=== PATIENT | male | born 1955 | race Caucasian/White ===

== ENCOUNTER 2017-04-24 19:36 | Inpatient (IN) | payer OTHER ==
--- NOTE | 2017-04-24 20:16 | ED ---
Fall HPI - General Chief Complaint: Fall Stated Complaint: Fall Lt elbow pain Time Seen by Provider: 04/24/17 20:04 Source: patient, RN notes reviewed Mode of arrival: ambulatory - History of Present Illness Initial Comments: 61-year-old male presents to the emergency Department chief complaint of left elbow injury. Patient states that he fell backwards on the stairs. Patient states he believes he only went onto his left elbow but it could've been a head injury. Patient states there hasn't been any fever chills with this. Patient denies any cough cold runny nose. Patient states that he is no loss of consciousness no neck pain. Patient denies any shoulder pain or hand pain and he states she's noticed swelling and bruising to the left elbow. Patient states his tetanus is up-to-date. Patient denies any other symptoms at this time. Patient denies any recent fever, chills, shortness of breath, chest pain, back pain, abdominal pain, nausea vomiting, numbness or tingling, dysuria or hematuria, constipation or diarrhea, headaches or visual changes, or any other current symptoms. - Related Data Home Medications Medication Instructions Recorded Confirmed Atenolol/Chlorthalidone 1 each PO DAILY 05/24/14 05/26/14 [Atenolol-Chlorthal 50-25 Tb] metFORMIN HCL 1,000 mg PO BID 05/24/14 05/26/14 Allergies Allergy/AdvReac Type Severity Reaction Status Date / Time No Known Allergies Allergy Verified 04/24/17 19:58 Review of Systems ROS Statement: Those systems with pertinent positive or pertinent negative responses have been documented in the HPI. ROS Other: All systems not noted in ROS Statement are negative. Past Medical History Past Medical History: Diabetes Mellitus, Hypertension History of Any Multi-Drug Resistant Organisms: None Reported Past Surgical History: Breast Surgery Additional Past Surgical History / Comment(s): breast biopsy, colonoscopy Past Anesthesia/Blood Transfusion Reactions: No Reported Reaction Past Psychological History: No Psychological Hx Reported Smoking Status: Former smoker Past Alcohol Use History: Daily Past Drug Use History: None Reported General Exam - General Exam Comments Initial Comments: General: The patient is awake and alert, in no distress, and does not appear acutely ill. Head: No trauma noted: No abrasion, no ecchymosis Neck: The neck is supple, there is no tenderness . Cardiovascular: There is a regular rate and rhythm. No murmur, rub or gallop is appreciated. Respiratory: Lungs are clear to auscultation, respirations are non-labored, breath sounds are equal. No wheezes, stridor, rales, or rhonchi. Musculoskeletal: Sensation intact with 2+ pulses throughout the left upper x- ray. Final range of motion of left shoulder and left wrist. Patient does appear to have some swelling to the left elbow with associated abrasion. Patient has full range motion of the left elbow when moved through range of motion. Neurological: CN II-XII intact, There are no obvious motor or sensory deficits. Coordination appears grossly intact. Speech is normal. Skin: Skin is warm and dry and no rashes or lesions are noted. Psychiatric: Normal mood and affect. Limitations: no limitations Course Vital Signs 04/24/17 19:54 Temperature 97.4 F L Pulse Rate 80 Respiratory 18 Rate Blood Pressure 137/81 O2 Sat by Pulse 97 Oximetry Procedures - Orthopedic Splinting/Casting Injury #1 Side: left Upper Extremity Injury Location: elbow Upper Extremity Immobilizer: posterior splint (long arm) Medical Decision Making - Medical Decision Making 61-year-old male presents emergency Department chief complaint of left elbow injury after a fall. patient does appear to have a fracture to the left ulna. At this time neck PA for Dr. Moira Rodriguez was contacted and they will admit the patient. We will keep the patient nothing by mouth. Disposition Clinical Impression: Left ulnar fracture, Fall, Abrasion of left arm, Cervical strain, Alcohol use Disposition: ADMITTED IP TO THIS HOSP Condition: Stable Referrals: Nate Gray MD [Primary Care Provider] - 1-2 days Time of Disposition: 21:28 Decision Date: 04/24/17 Decision Time: 21:28
--- NOTE | 2017-04-24 20:54 | XR ---
EXAMINATION TYPE: XR elbow complete LT DATE OF EXAM: 04/24/2017 CLINICAL HISTORY: Pain, fall TECHNIQUE: Frontal, lateral and oblique images of the left elbow are obtained. COMPARISON: None FINDINGS: There is a comminuted fracture of the olecranon and proximal ulna. Fracture lines extend in to the articular region. There is prominent soft tissue swelling over the olecranon. Small fracture f ragments are within the soft tissues. Mild prominence of the anterior and posterior fat pads are evident. Radius appears intact normal alig nmmargarita. IMPRESSION: Fracture of the ulna with intra-articular extension and overlying soft tissue swelling.
--- NOTE | 2017-04-24 21:07 | CT ---
EXAMINATION TYPE: CT brain dionicio romo con DATE OF EXAM: 04/24/2017 COMPARISON: NONE HISTORY: Fall backwards down 4 stairs. Possible head injury. No head or neck complaints. CT DLP: 2104.00 mGycm, Automated exposure control for dose reduction was used. CONTRAST: Patient injected with 0 mL of Omnipaque 300. CT of the brain is performed utilizing 3 mm thick sections through the posterior fossa and 3 mm thick sections through the remaining calvarium. Study is performed within 24 hours of arrival to the hospital. No abnormal hyperdensity is present to suggest an acute intracranial hemorrhage. No mass lesion is evident. No acute infarcts are evident. Ventricles and sulci are appropriate for the patient age. Paranasal sinuses and mastoid air cells within the [id number] are clear. IMPRESSIONS: 1. Normal CT brain. CT cervical spine. COMPARISON: None CT of the cervical spine is performed in the axial plane at 2 mm thick sections. Reconstructed image s in the coronal, and sagittal plane are reviewed on the computer. No acute fractures are evident. Vertebral body alignment is straightened. There is diffuse loss of disc height throughout the cervical spine. Vertebral body heights are preserved. No AP spinal canal stenosis present. C3-4: Severe right foraminal stenosis is present. Moderate left foraminal stenosis is present. Uncove rtebral joint hypertrophy and right facet hypertrophy are present. C4-5: There is moderate bilateral foraminal stenosis due to uncovertebral joint hypertrophy. C5-6: There is mild right and left foraminal stenosis due to uncovertebral joint hypertrophy. Right p aracentral endplate spur from the superior endplate of C6 is present with moderate anterior thecal sa c compression. C6-7: Bilateral uncovertebral joint hypertrophy is contributing to mild foraminal narrowing. IMPRESSIONS: 1. No acute osseous abnormality. 2. Straightening of the cervical spine which can be related to patient positioning or muscle spasm. 3. Degenerative disc changes. 4. Multilevel foraminal stenosis greater in the upper cervical spine.
[2017-04-24] MEDS ORDERED: SODIUM CHLORIDE 0.9% 1,000 ML IV STA (21:23)
[2017-04-24] MEDS ORDERED: NALOXONE 0.4 MG/ML 1 ML VIAL IV PRN (21:28)
[2017-04-24] MEDS ORDERED: ONDANSETRON 4 MG/2 ML VIAL IVP PRN (21:28)
[2017-04-24] MEDS ORDERED: HYDROcodone/APAP 5-325MG 1 EACH TAB PO PRN (21:28)
[2017-04-24] MEDS ORDERED: LORazepam 2 MG/ML SYRINGE IV PRN ×3 (21:30)
[2017-04-24] MEDS ORDERED: THIAMINE 100 MG/ML 2 ML VIAL IM STA (21:30)
[2017-04-24] MEDS: HYDROmorphone 1 MG/ML 1 ML SYRINGE IVP STA (21:54)
--- NOTE | 2017-04-24 22:06 | P.HPOR ---
History of Present Illness H&P Date: 04/24/17 Chief Complaint: Left olecranon fracture This is a 61-year-old male who is seen and evaluated, [facility] emergency room. Patient was walking into his house, and he states that his dog jumped up to greet him and he fell backwards down a few steps landing on pavement. Patient landed directly on his left elbow. Patient noted immediate severe pain, and reported to the hospital. Upon arrival to the hospital, imaging and lab tests were done. Images demonstrated a displaced and comminuted left olecranon fracture. I was contacted via the emergency room staff, we were able to discuss the case and review the images. I then was able to review the case and images of my tendon Dr. Barber. Decision was made that surgical intervention would be needed for this fracture. Patient will then be admitted under our care, with plan of an open reduction internal fixation procedure on 04/25/2017. Patient is seen in the emergency room by myself today, his is present at bedside. Patient admits to pain and swelling surrounding the left elbow. Patient denies any pain involving the left upper arm, shoulder, forearm, wrist or hand. Patient is a relatively healthy male, he is obese, he mentions being on medication for high blood pressure and prediabetes. He denies any previous orthopedic surgery to the left upper extremity. He denies any significant cardiac or pulmonary past medical history He denies any headaches, lightheadedness, chest pain, shortness of breath, abdominal discomfort, fever or chills. Review of Systems Constitutional: Reports as per HPI Past Medical History Past Medical History: Diabetes Mellitus, Hypertension History of Any Multi-Drug Resistant Organisms: None Reported Past Surgical History: Breast Surgery Additional Past Surgical History / Comment(s): breast biopsy, colonoscopy Past Anesthesia/Blood Transfusion Reactions: No Reported Reaction Past Psychological History: No Psychological Hx Reported Smoking Status: Former smoker Past Alcohol Use History: Daily Past Drug Use History: None Reported Medications and Allergies Home Medications Medication Instructions Recorded Confirmed Type Atenolol/Chlorthalidone 1 each PO DAILY 05/24/14 05/26/14 History [Atenolol-Chlorthal 50-25 Tb] metFORMIN HCL 1,000 mg PO BID 05/24/14 05/26/14 History Allergies Allergy/AdvReac Type Severity Reaction Status Date / Time No Known Allergies Allergy Verified 04/24/17 19:58 Physical Examination Left upper extremity: Notable abrasion to the posterior aspect of the elbow over the olecranon, and also a small abrasion noted over the lateral condyle Obvious hematoma and soft tissue swelling present over the posterior aspect of the elbow Obvious tenderness present with palpation surrounding the posterior elbow. No tenderness with palpation throughout the shoulder and humerus, forearm, hand and wrist Extension and flexion at the wrist are intact, he is able to minimally pronate and supinate the arm, this causes discomfort in the elbow His sensory exam to light touch throughout the extremities intact, his cap refills less than 2 seconds. Results - Diagnostic results Elbow x-ray: report reviewed, image reviewed Assessment and Plan Plan: Imaging: Multiple views of the left elbow were obtained. Images do demonstrate a comminuted and displaced left olecranon fracture Assessment: 1. Displaced/comminuted left olecranon fracture 2. Status post fall from steps Plan: 1. I was able to discuss this case, including both physical exam findings and images with my attending Dr. Barber. Surgical intervention will be needed for this fracture, this was discussed with the patient and his at bedside. The risk and benefits of the procedure were discussed, this including but not excluding infection, blood loss, neurovascular injury, pain and stiffness, loss of range of motion, and adequate healing of bone/wound, need for subsequent surgery. They are in good understanding of this and would like to proceed. 2. Obtain consent 3. Pain control, utilize IV and oral medication 4. Nothing by mouth after midnight 5. Utilize a posterior splint at this point 6. Plan for surgery the morning of 04/25/2017 7. Further recommendations to follow Time with Patient: Less than 30
[2017-04-24 22:13] LABS: Basophils # (A) 0.1 k/uL (0-0.2); Basophils % (A) 1 %; CH 33.1; CHCM 35.4; Eosinophils # (A) 0.2 k/uL (0-0.7); Eosinophils % (A) 1 %; HCT 49.3 % (39.0-53.0); HDW 2.58; Luc # (Auto) 0.28; Luc % (Auto) 2; Lymphocytes # (A) 2.7 k/uL (1.0-4.8); Lymphocytes % (A) 17 %; MCH 32.4 pg (25.0-35.0); MCHC 34.5 g/dL (31.0-37.0); MCV 93.8 fL (80.0-100.0); Mean Platelet Volume 6.9; Monocytes # (A) 0.8 k/uL (0-1.0); Monocytes % (A) 5 %; Neutrophils # (A) 12.1 k/uL (1.3-7.7); Neutrophils % (A) 75 %; RBC 5.26 m/uL (4.30-5.90); RDW 13.5 % (11.5-15.5); WBC 16.2 k/uL (3.8-10.6); WBC (Perox) 15.96
[2017-04-24 22:22] LABS: Partial Thromboplastin Time 23.3 sec (22.0-30.0)
[2017-04-24 22:31] LABS: ALT 29 U/L (21-72); AST 24 U/L (17-59); Alcohol 186 mg/dL; Alkaline Phosphatase 129 U/L (38-126); Anion Gap 16 mmol/L; Blood Urea Nitrogen 16 mg/dL (9-20); Calcium 9.2 mg/dL (8.4-10.2); Carbon Dioxide 23 mmol/L (22-30); Chloride 101 mmol/L (98-107); Glucose 105 mg/dL (74-99); Non-African American GFR(MDRD) >60 (>60 ml/min/1.73 sqM); Phosphorous 3.9 mg/dL (2.5-4.5); Potassium 3.5 mmol/L (3.5-5.1); Sodium 140 mmol/L (137-145); Total Bilirubin 0.6 mg/dL (0.2-1.3); Total Protein 7.4 g/dL (6.3-8.2)
[2017-04-24 22:47] VITALS: BMI 48.8
[2017-04-24] MEDS: SODIUM CHLORIDE 0.9% 1,000 ML IV SCH (22:54)
[2017-04-24] MEDS: HYDROmorphone 1 MG/ML 1 ML SYRINGE IV PRN (23:02)
[2017-04-25] MEDS: HYDROmorphone 1 MG/ML 1 ML SYRINGE IV PRN ×2 (04:10→10:18)
[2017-04-25 07:43] LABS: Glucose,Whole Blood 93 mg/dL (75-99)
[2017-04-25] MEDS: SODIUM CHLORIDE 0.9% 1,000 ML IV SCH ×2 (10:17→21:11)
[2017-04-25] MEDS: INSULIN LISPRO (humaLOG) 300 UNIT/3 ML VIAL SQ SCH ×4 (10:27→21:10)
[2017-04-25] MEDS ORDERED: fentaNYL (PF) 50 MCG/ML 2 ML AMP ONE ×2 (11:02)
[2017-04-25] MEDS ORDERED: KETOROLAC 30 MG/ML 1 ML VIAL ONE ×2 (11:02)
[2017-04-25] MEDS ORDERED: SUCCINYLCHOLINE CHLORIDE 100 MG/5 ML SYR IV ONE ×2 (11:02)
[2017-04-25] MEDS ORDERED: PROPOFOL 10 MG/ML 20 ML VIAL IV ONE ×2 (11:02)
[2017-04-25] MEDS ORDERED: IV FLUID CONTINUATION 800 ML IV ONE (11:02)
[2017-04-25] MEDS ORDERED: MIDAZOLAM 2 MG/2 ML VIAL ONE (11:02)
[2017-04-25] MEDS ORDERED: SODIUM CHLORIDE 0.9% 50 ML with ceFAZolin 3,000 MG IV ONE ×2 (11:10)
[2017-04-25] MEDS ORDERED: BUPIVACAINE (PF) 0.5% 30 ML VIAL SQ ONE ×2 (11:32)
[2017-04-25] MEDS ORDERED: ceFAZolin 1,000 MG in SODIUM CHLORIDE 0.9% 1,000 ML IRRIGATION ONE (11:59)
[2017-04-25 12:00] LABS: Hemoglobin A1C 5.3 % (4.2-6.1)
[2017-04-25] MEDS ORDERED: BACITRACIN 500 UNIT/GM OINT 28.4 GM TUBE TOPICAL ONE (12:18)
--- NOTE | 2017-04-25 12:18 | XR ---
EXAMINATION TYPE: XR elbow limited LT DATE OF EXAM: 04/25/2017 COMPARISON: NONE HISTORY: Pain TECHNIQUE: 1 operative views submitted FINDINGS: Surgical changes noted which appear in near-anatomic alignment. IMPRESSION: Surgical alignment near-anatomic
[2017-04-25] MEDS ORDERED: LACTATED RINGERS 1,000 ML IV ONE (12:23)
[2017-04-25] MEDS: THIAMINE 100 MG TAB PO SCH ×2 (12:26→16:52)
[2017-04-25] MEDS ORDERED: HYDROmorphone 1 MG/ML 1 ML SYRINGE IVP PRN ×2 (12:40)
[2017-04-25] MEDS ORDERED: HYDROcodone/APAP 7.5-325MG 1 EACH TAB PO PRN (12:41)
[2017-04-25] MEDS: HYDROmorphone 1 MG/ML 1 ML SYRINGE IVP ONE ×3 (12:43→12:59)
[2017-04-25] MEDS ORDERED: ACETAMINOPHEN TAB 325 MG TAB PO PRN (12:43)
--- NOTE | 2017-04-25 12:44 | P.OP ---
Date of Procedure: 04/25/17 Preoperative Diagnosis: Comminuted/displaced left elbow olecranon fracture Postoperative Diagnosis: Same Procedure(s) Performed: Open reduction and internal fixation left elbow olecranon fracture Implants: 2-0.62 K wires, 16-gauge cerclage wire Anesthesia: JAME, local Surgeon: Stanley Barber Bulldozer Operator #1: Wagner Diallo Estimated Blood Loss (ml): 20 Pathology: none sent Condition: stable Disposition: PACU Indications for Procedure: 61-year-old patient seen with a displaced/comminuted left elbow olecranon fracture. I recommended open reduction internal fixation. The procedure, risks , complications and recovery were discussed with patient and his . They were agreeable and consent was obtained. Operative Findings: See description of procedure Description of Procedure: The patient was taken to the operative suite. The patient underwent a general anesthetic by the department anesthesia. The patient was given preoperative IV antibiotics. A well-padded tourniquet was placed proximal left upper extremity. The left upper extremity was prepped and draped in the normal sterile orthopedic fashion. The tourniquet was insufflated to 250. I made longitudinal incision over the olecranon beginning at the tip of the olecranon extending distally approximately 6 cm. We immediately encountered hematoma was evacuated. We bluntly dissected down to the fracture which was comminuted and displaced. Periosteal elevation was used more distally to expose the proximal aspect of the ulna. We then evacuated the hematoma. There was a comminuted fragment that was debrided out. At this point we irrigated the wound out with saline solution. We introduced 1062 K wire from the proximal olecranon into the intramedullary canal of the ulna while holding the fracture reduced. We brought the C-arm into the operative field noting adequate alignment of that pulmonary first K wire. I now introduced a second K wire somewhat perpendicular to the first. We again checked on fluoroscopy noted adequate positioning of the K wire. We now drilled a hole approximately 3 cm distal to the fracture passed our 16-gauge cerclage wire through that. We then clipped the ends of our K wires and bent them and then reduced the fracture using a standard tension band wiring technique. We good reduction of this comminuted fracture with adequate alignment noted on AP and lateral intraoperative imaging. The residual wire was cut all ends were bent and buried in soft tissue. The elbow seems range of motion on good stability of the fracture. The C-arm was brought in again noting adequate alignment of this comminuted fracture with the positioner introduced fixation. Spot films were obtained intraoperatively to document that. The wound was irrigated with antibiotic irrigant. The soft tissues were repaired in layers with 2-0 Vicryl. The skin is proximal skin adwoa. The subcu soft tissues were infiltrated local analgesic. Sterile dressings were applied. The tourniquet was released with immediate capillary refill the entire extremity noted. We placed him into a posterior sugar tong splint with the elbow in 90 of flexion in neutral rotation of the forearm. The patient was transferred to a bed then recovery stable condition. Mani HANCOCK assisted with the procedure.
[2017-04-25] MEDS: HYDROmorphone 1 MG/ML 1 ML SYRINGE IVP STA (12:54)
[2017-04-25 13:04] LABS: Glucose,Whole Blood 111 mg/dL (75-99)
[2017-04-25] MEDS ORDERED: fentaNYL (PF) 50 MCG/ML 2 ML AMP IVP ONE (13:11)
[2017-04-25] MEDS ORDERED: diphenhydrAMINE 50 MG/ML 1 ML VIAL IVP ONE ×2 (13:23)
[2017-04-25] MEDS: HYDROcodone/APAP 7.5-325MG 1 EACH TAB PO PRN ×2 (16:39→22:36)
[2017-04-25] MEDS: hydrOXYzine PAMOATE 25 MG CAP PO PRN ×2 (16:40→22:36)
[2017-04-25] MEDS: traMADol 50 MG TAB PO SCH ×3 (16:51→22:41)
[2017-04-25 17:49] LABS: Glucose,Whole Blood 119 mg/dL (75-99)
[2017-04-25] MEDS: metFORMIN 500 MG TAB PO SCH (17:54)
[2017-04-25] MEDS: ceFAZolin 3 GM in SODIUM CHLORIDE 0.9% 100 ML IVPB SCH (19:11)
[2017-04-25] MEDS: CHLORTHALIDONE 25 MG TAB PO SCH (20:20)
[2017-04-25] MEDS: ATENOLOL 50 MG TAB PO SCH (20:20)
[2017-04-25] MEDS ORDERED: ATORVASTATIN 20 MG TAB PO SCH (21:00)
[2017-04-25 21:08] LABS: Glucose,Whole Blood 105 mg/dL (75-99)
[2017-04-26] MEDS: ceFAZolin 3 GM in SODIUM CHLORIDE 0.9% 100 ML IVPB SCH (02:12)
[2017-04-26 02:15] VITALS: RESP 16
[2017-04-26] MEDS: hydrOXYzine PAMOATE 25 MG CAP PO PRN (06:21)
[2017-04-26] MEDS: HYDROcodone/APAP 7.5-325MG 1 EACH TAB PO PRN ×2 (06:21→12:19)
[2017-04-26 07:04] LABS: Glucose,Whole Blood 112 mg/dL (75-99)
[2017-04-26 07:15] VITALS: BP 110/66; PULSE 80; TEMP 100.6
--- NOTE | 2017-04-26 08:12 | P.DS ---
Providers Date of admission: 04/24/17 21:33 Expected date of discharge: 04/26/17 Attending physician: Stanley Barber Primary care physician: Nate Gray Hospital Course: Date of admission: 04/24/2017 Date of discharge: 04/26/2017 Admission diagnosis: Displaced left elbow olecranon fracture Discharge diagnosis: Status post ORIF left elbow olecranon fracture Attending physician: Dr. Barber Surgical procedures: Open reduction internal fixation left elbow olecranon fracture Brief history: Patient is a 61-year-old male who is seen and evaluated in the emergency room the night of 04/24/2017 after sustaining a fall off his porch on the cement at his home. Imaging studies demonstrated a displaced left olecranon fracture involving the left elbow. Our orthopedic team was consulted on this patient, I was able to evaluate him in the emergency room that night. It was determined that surgical fixation would be needed for this fracture. Patient was admitted to the hospital the same night under our orthopedic care, and surgery scheduled for 04/25/2017. Hospital course: Details of patient's surgery can be found in operative report. Patient tolerated the procedure well and was subsequently transported to orthopedic floor. Patient's orthopeidc and medical care was provided daily. Patient was noted to have a relatively uneventful postoperative course. Patient reported satisfactory pain control with oral pain medications by postoperative day 0. Patient moved steadily through the program and had no difficulty meeting the goals by postoperative day 1. Given patient's otherwise satisfactory course and having met physical therapy goals, plan is to discharge patient home on postoperative day 1. Discharge condition/disposition: Patient will be discharged home in stable condition. Discharge medications: Instructions are given on resumption of patient's normal daily medications per primary care recommendation, in addition patient will be prescribed Western 10mg/325mg. Discharge instructions: 1. Do not remove splint, keep covered while showering. 2. Ice and elevate the extremity 3. Pain meds as needed 4. Follow up in office at 2 weeks postop with Mani Diallo PA-C 5. Follow up with your primary care doctor 7-10 days after discharge. 6. Contact [facility] with any questions, . Procedures: Open reduction internal fixation left displaced olecranon fracture Patient Condition at Discharge: Good Plan - Discharge Summary New Discharge Prescriptions: New Hydrocodone/Acetaminophen [Western 10-325] 1 each PO Q6H PRN #60 tab PRN Reason: Pain No Action Atenolol/Chlorthalidone [Atenolol-Chlorthal 50-25 Tb] 1 tab PO BID metFORMIN HCL ER [Glucophage Xr] 500 mg PO W/BRKFST Atorvastatin Calcium [Lipitor] 20 mg PO HS Discharge Medication List Atenolol/Chlorthalidone [Atenolol-Chlorthal 50-25 Tb] 1 tab PO BID 05/24/14 [ History] Atorvastatin Calcium [Lipitor] 20 mg PO HS 04/24/17 [History] metFORMIN HCL ER [Glucophage Xr] 500 mg PO W/BRKFST 04/24/17 [History] Hydrocodone/Acetaminophen [Western 10-325] 1 each PO Q6H PRN #60 tab 04/26/17 [Rx] Follow up Appointment(s)/Referral(s): aNte Gray MD [Primary Care Provider] - 1-2 days Wagner Diallo PAC [PHYSICIAN RESPIRATORY CARE SPECIALIST] - 2 Weeks Activity/Diet/Wound Care/Special Instructions: Discharge instructions: 1. Do not remove splint, keep clean and dry. Keep covered while showering 2. Ice the extremity opted for some dramatic relief 3. Pain medication as needed 4. Follow-up at [facility] in 2 weeks Discharge Disposition: HOME SELF-CARE
[2017-04-26] MEDS: INSULIN LISPRO (humaLOG) 300 UNIT/3 ML VIAL SQ SCH ×2 (08:34→12:27)
[2017-04-26] MEDS: metFORMIN 500 MG TAB PO SCH (08:36)
--- NOTE | 2017-04-26 10:06 | P.PN ---
Subjective Principal diagnosis: s/p ORIF left elbow olecranon fracture Patient seen resting in hospital bed, he appears comfortable. Slight increase in pain. No chest pain or shortness of breath. Objective - Vital Signs Vital signs: Vital Signs Temp 100.6 F H 04/26/17 07:12 Pulse 80 04/26/17 07:12 Resp 16 04/26/17 07:16 BP 110/66 04/26/17 07:12 Pulse Ox 92 L 04/26/17 07:16 Intake & Output 04/25/17 04/26/17 04/26/17 18:59 06:59 18:59 Intake Total 1990 320 Output Total 20 Balance 1970 320 Intake: IV 1501 320 Sodium Chloride 0.9% 1, 320 000 ml @ 80 mls/hr IV . [id number] STUART Rx#:[id number] Intake, IV Titration 240 Amount Sodium Chloride 0.9% 1, 240 000 ml @ 80 mls/hr IV . [id number] STUART Rx#:[id number] Oral 250 Output: Estimated Blood Loss 20 Other: Voiding Method Toilet # Voids 1 1 - Exam Left upper extremity: Splint is in good condition, he is utilizing the arm sling. He is able wiggle all the fingers including the thumb. His sensation to light touch is intact both proximal distal to the splint. His cap refill is less than 2 seconds. - Labs CBC & Chem 7: 04/24/17 21:53 04/24/17 21:53 Labs: Abnormal Lab Results - Last 24 Hours (Table) 04/25/17 04/25/17 04/25/17 Range/Units 13:01 17:46 21:04 POC Glucose (mg/dL) 111 H 119 H 105 H (75-99) mg/dL 04/26/17 Range/Units 07:02 POC Glucose (mg/dL) 112 H (75-99) mg/dL Assessment and Plan Plan: Assessment: 1. Postoperative day #1 status post ORIF left elbow olecranon fracture Plan: 1. Pain control, we'll discharge home on oral medication 2. Cast instructions were discussed the patient at bedside today 3. Patient advised to follow-up in the office in 2 weeks for postoperative evaluation, he will be discharged home today Time with Patient: Less than 30
[2017-04-26] MEDS: traMADol 50 MG TAB PO SCH (10:34)
[2017-04-26] MEDS: CHLORTHALIDONE 25 MG TAB PO SCH (10:34)
[2017-04-26] MEDS: ATENOLOL 50 MG TAB PO SCH (10:35)
[2017-04-26 11:25] LABS: Glucose,Whole Blood 100 mg/dL (75-99)
[2017-04-26] MEDS: SODIUM CHLORIDE 0.9% 1,000 ML IV SCH (12:26)
[2017-04-26] MEDS: THIAMINE 100 MG TAB PO SCH (12:27)
--- NOTE | 2017-04-27 07:58 | FL ---
FLUOROSCOPY 6 seconds of fluoroscopy time were utilized during internal fixation of the left elbow. 2 images docu ment the procedure.
== END 2017-04-26 12:25 | disposition home or self-care (01) | DRG 511 ==
LOC: EC 19:36 → 3SUR 21:33
PROVIDERS: ADMIT Orthopaedic Surgery; ATTEND Orthopaedic Surgery
PROC: 0PSL04Z Reposition Left Ulna with Internal Fixation Device, Open Approach (ICD-10-PCS; principal; 2017-04-25 10:30)
DX: S52.022A Displaced fracture of olecranon process without intraarticular extension of left ulna, initial encounter for closed fracture (principal); Z68.42 Body mass index [BMI] 45.0-49.9, adult; E66.9 Obesity, unspecified; I10 Essential (primary) hypertension; S16.1XXA Strain of muscle, fascia and tendon at neck level, initial encounter; E11.9 Type 2 diabetes mellitus without complications; Z79.899 Other long term (current) drug therapy; Z79.84 Long term (current) use of oral hypoglycemic drugs; Z87.891 Personal history of nicotine dependence; W10.8XXA Fall (on) (from) other stairs and steps, initial encounter; Y92.008 Other place in unspecified non-institutional (private) residence as the place of occurrence of the external cause
CPT/HCPCS: 29105; 70450; 72125; 80053; 80320; 83036; 83735; 84100; 85025; 85610; 85730; 86850; 86900; 86901; 96361; 96374; 96376; 99284

== ENCOUNTER → 2017-05-26 | Outpatient (CLI) | payer OTHER ==
--- NOTE | 2017-05-26 18:08 | PN ---
DATE OF SERVICE: 05/26/2017 This is a 61-year-old male patient who is seeing me in followup regarding his obstructive sleep apnea. This is his annual exam. He has severe TANG with an AHI of 109.7 and he was being treated with BiPAP at a pressure of 19/15 cm of water along with oxygen at 2 liters. He is doing extremely well; still very compliant with the treatment, waking up alert and awake during the day. Sleep quality has improved significantly and the patient is utilizing his BiPAP every night without any interruption. His Tombstone score is down to zero. He has lost about 17 pounds since his last evaluation. He claims that his hemoglobin has also dropped, as the patient has secondary erythrocytosis that was a concern in association with obstructive sleep apnea. No complaints for now. He is using a full-face mask. No difficulties in tolerating the BiPAP treatment for now. No other significant events over the past 12 months. His current vitals are BP 146/ 83, pulse 82, respiration 16, temperature 98.4, saturation 95% on room air. Neck size 19-1/2 inches. Tombstone score is zero. Height is 5 feet 11 inches. Weight is 322. BMI is 45. GENERAL APPEARANCE: Calm, comfortable. HEENT: Short neck. Crowding of posterior pharynx. No goiter or neck masses. LUNGS: Diminished breath sounds. Otherwise clear. Heart sounds are regular rate and rhythm. Normal S1, S2. No S3. No S4. No murmurs. ABDOMEN: Soft, non-tender. No organomegaly. EXTREMITIES: No edema. No cyanosis or clubbing. IMPRESSION: 1. Severe symptomatic obstructive sleep apnea with an AHI of 109.7. Continues to successfully be treated with BiPAP at a pressure of 19/15 with oxygen at 3 L. 2. Morbid obesity. 3. Secondary erythrocytosis. 4. Hypersomnia, improved. Tombstone score is down to zero. 5. Successful weight loss on the order of 17 pounds. PLAN: 1. Renew BiPAP supplies; mask, filters and rest of the accessories. 2. Encourage further weight loss. 3. No need for any adjustments, as the patient's treatment is successful. 4. See me back in a year's time in followup. CHRIS
== END | disposition home or self-care (01) ==
LOC: SLEEP 13:10
PROVIDERS: ATTEND Internal Medicine Critical Care Medicine
DX: G47.33 Obstructive sleep apnea (adult) (pediatric) (principal); E66.01 Morbid (severe) obesity due to excess calories; D75.1 Secondary polycythemia

== ENCOUNTER → 2017-07-10 | Outpatient (CLI) | payer OTHER ==
--- NOTE | 2017-07-10 09:26 | MR ---
EXAMINATION TYPE: MR shoulder LT wo con DATE OF EXAM: 07/10/2017 COMPARISON: NONE HISTORY: Left shoulder pain TECHNIQUE: Multiplanar, multisequence imaging of the left shoulder is performed without contrast. FINDINGS: Rotator Cuff: There is thickening and abnormal signal of the distal margin of the supraspinatus tendo n extending the insertion last Approximately 1.8 cm. Irregularity along the bursal surface noted compatible with partial bursal surf liz tear. No retraction. Infraspinatus tendon appears to be intact. Subscapularis tendon intact. Acromioclavicular Joint: There is marked hypertrophic change and narrowing of the AC joint which resu lts in impingement of the rotator cuff. Glenohumeral Joint: Joint space appears to be preserved there is a trace amount of fluid within the j oint space. Motion artifact limits assessment of the inferior glenohumeral ligament cannot exclude a strain. Labrum: The labrum appears grossly intact given limitation of non-arthrogram study. Biceps Tendon: The long head of biceps is in normal location within bicipital groove. Bone marrow signal: Cystic changes involving the humeral head likely related to chronic impingement. IMPRESSION: Exam limited by motion artifact. 1. Impingement secondary to arthropathy of the AC joint with diffuse tendinopathy of the supraspinatu s tendon ( Approximately 1.8 cm and extending to the insertion. Bursal irregularity near the insertion is compat ible with partial bursal surface tear with no retraction. Suspect a small through thickness tear at t he humeral insertion. 2. Motion artifact limits the exam. Particularly limitation with respect to the in inferior glenohume ral ligament which is somewhat ill-defined. Correlate clinically to exclude strain. 3. There is atrophic changes in the visualized musculature.
== END | disposition home or self-care (01) ==
LOC: RADMRIMAIN 08:30
PROVIDERS: ATTEND Family Medicine
DX: M67.814 Other specified disorders of tendon, left shoulder (principal); M25.812 Other specified joint disorders, left shoulder; M62.50 Muscle wasting and atrophy, not elsewhere classified, unspecified site

== ENCOUNTER → 2017-08-13 | Outpatient (CLI) | payer OTHER ==
[2017-08-13 09:45] LABS: EKG EKG PERFORMED
[2017-08-13 10:09] LABS: Basophils # (A) 0.1 k/uL (0-0.2); Basophils % (A) 1 %; CH 31.8; CHCM 33.5; Eosinophils # (A) 0.2 k/uL (0-0.7); Eosinophils % (A) 2 %; HCT 47.5 % (39.0-53.0); HDW 2.52; HGB 15.7 gm/dL (13.0-17.5); Luc # (Auto) 0.23; Luc % (Auto) 2; Lymphocytes % (A) 17 %; MCH 31.4 pg (25.0-35.0); MCV 95.2 fL (80.0-100.0); Mean Platelet Volume 7.2; Monocytes # (A) 0.8 k/uL (0-1.0); Monocytes % (A) 7 %; Neutrophils # (A) 8.1 k/uL (1.3-7.7); Neutrophils % (A) 71 %; RBC 4.99 m/uL (4.30-5.90); RDW 12.8 % (11.5-15.5); WBC 11.4 k/uL (3.8-10.6); WBC (Perox) 11.78
[2017-08-13 10:28] LABS: Anion Gap 11 mmol/L; Carbon Dioxide 26 mmol/L (22-30); Chloride 103 mmol/L (98-107); Potassium 3.5 mmol/L (3.5-5.1); Sodium 140 mmol/L (137-145)
== END | disposition home or self-care (01) ==
LOC: LABPAT 09:12
PROVIDERS: ATTEND Orthopaedic Surgery
DX: Z01.810 Encounter for preprocedural cardiovascular examination (principal); R94.31 Abnormal electrocardiogram [ECG] [EKG]; M75.42 Impingement syndrome of left shoulder
CPT/HCPCS: 36415; 80051; 85025; 93005

== ENCOUNTER 2017-08-19 05:52 | Day surgery (SDC) | payer OTHER ==
[2017-08-14 09:26] VITALS: BMI 44.0
--- NOTE | 2017-08-18 13:52 | HP ---
HISTORY AND PHYSICAL DATE OF SERVICE: 08/19/2017 Xu Ornelas is a 61-year-old patient seen with progressive left shoulder pain. After treatment options were discussed with him, he elected to proceed with left shoulder arthroscopy. Consent was obtained. PAST MEDICAL HISTORY: Hypertension, hyperlipidemia. PAST SURGICAL HISTORY: Open reduction, internal fixation of left elbow fracture. DAILY MEDICATIONS: 1. Atenolol. 2. Atorvastatin. 3. Metoprolol. 4. Metformin. ALLERGIES: None reported. SOCIAL HISTORY: Patient denies tobacco use. PHYSICAL EVALUATION OF THE LEFT SHOULDER: Flexion is 40 degrees. Abduction is 20 degrees. External rotation is 20 degrees with pain and weakness. Tenderness along the anterolateral acromion rotator cuff insertion. Impingement positive at 70 degrees. Drop-arm sign is positive. Distal neurovascular exam is intact. RADIOGRAPHS OF THE LEFT SHOULDER: Revealed a type 2 anterior acromion, acromioclavicular joint osteoarthritis and cystic changes of the tuberosity. A left shoulder MRI revealed a rotator cuff tear as well as impingement. IMPRESSION: Left shoulder impingement with rotator cuff tear. PLAN: Left shoulder arthroscopy with subacromial decompression, possible arthroscopic rotator cuff repair. Possible Kyra procedure and debridement. SOURCE OF CONSULT: 1955 surgery is 08/19/2017 thanks. MMODL / IJN: [id number] /
[~2017-08-19 05:52] MED LIST: ceFAZolin 3 GM in SODIUM CHLORIDE 0.9% 100 ML IVPB ONE
[2017-08-19] MEDS ORDERED: LACTATED RINGERS 1,000 ML IV SCH (06:05)
[2017-08-19] MEDS ORDERED: ONDANSETRON 4 MG/2 ML VIAL IVP ONE (06:05)
[2017-08-19] MEDS ORDERED: LIDOCAINE 1% 20 ML VIAL (10MG/ML) FOR IV START INTRADERMA PRN (06:05)
[2017-08-19] MEDS ORDERED: SCOPOLAMINE 1.5MG/72HR PATCH TRANSDERM ONE (06:05)
[2017-08-19] MEDS ORDERED: MIDAZOLAM 2 MG/2 ML VIAL IV PRN (06:05)
[2017-08-19] MEDS ORDERED: HYDROmorphone 0.5 MG/0.5 ML SYRINGE IVP PRN (06:05)
[2017-08-19] MEDS ORDERED: DEXAMETHASONE SOD PHOSPHATE 10 MG/ML 1 ML VIAL IV ONE (06:05)
[2017-08-19 06:42] LABS: Glucose,Whole Blood 108 mg/dL (75-99)
[2017-08-19] MEDS ORDERED: fentaNYL (PF) 50 MCG/ML 2 ML AMP ONE (07:27)
[2017-08-19] MEDS ORDERED: GLYCOPYRROLATE 0.2 MG/ML 2 ML VIAL ONE (07:27)
[2017-08-19] MEDS ORDERED: MIDAZOLAM 2 MG/2 ML VIAL ONE (07:27)
[2017-08-19] MEDS ORDERED: PROPOFOL 10 MG/ML 20 ML VIAL IV ONE (07:27)
[2017-08-19] MEDS ORDERED: LIDOCAINE 2%-EPI 1:100,000 20 ML VIAL ONE (07:27)
[2017-08-19] MEDS ORDERED: SUCCINYLCHOLINE CHLORIDE 100 MG/5 ML SYR IV ONE (07:27)
[2017-08-19] MEDS ORDERED: KETOROLAC 30 MG/ML 1 ML VIAL ONE (07:27)
[2017-08-19] MEDS ORDERED: ROCURONIUM BROMIDE 10 MG/ML 10 ML VIAL IV ONE (07:27)
[2017-08-19] MEDS ORDERED: ONDANSETRON 4 MG/2 ML VIAL ONE (07:27)
[2017-08-19] MEDS ORDERED: ROPIVACAINE 5 MG/ML 30 ML VIAL ONE (07:27)
[2017-08-19] MEDS ORDERED: NEOSTIGMINE 1 MG/ML 10 ML VIAL ONE (07:27)
[2017-08-19] MEDS ORDERED: LACTATED RINGERS 1,000 ML IV ONE (08:15)
[2017-08-19 09:15] VITALS: TEMP 97.2
--- NOTE | 2017-08-19 09:16 | P.OP ---
Date of Procedure: 08/19/17 Preoperative Diagnosis: Left shoulder impingement Postoperative Diagnosis: 1. Left shoulder rotator cuff tear 2. Left shoulder impingement 3. Left shoulder acromioclavicular joint osteoarthritis 4. Left shoulder partial biceps tendon tear 5. Left shoulder superficial labral tear Procedure(s) Performed: 1. Left shoulder arthroscopic rotator cuff repair 2. Left shoulder arthroscopic subacromial decompression 3. Left shoulder arthroscopic Kyra procedure 4. Left shoulder arthroscopic biceps tenotomy 5. Left shoulder arthroscopic debridement labral tear Implants: 1-5.5 mm peek anchor Anesthesia: GETA, regional (Interscalene block) Surgeon: Stanley Barber Scrap Piler #1: Wagner Diallo Estimated Blood Loss (ml): 10 Pathology: none sent Condition: stable Disposition: PACU Indications for Procedure: 61-year-old patient seen with left shoulder pain. After treatment options were discussed, he elected to proceed with arthroscopy. Operative Findings: See description of procedure Description of Procedure: Patient underwent a shoulder block by department of anesthesia. The patient was then taken to the operative suite. The patient underwent a general anesthetic by the department of anesthesia. The patient was placed into a lateral position and secured. There was appropriate padding of the bony prominence. Left shoulder was then prepped and draped in normal sterile orthopedic fashion. We placed the extremity in 10 pounds of longitudinal traction. A posterior incision was now made for a posterior working portal site. The trocar and cannula were inserted into the glenohumeral joint. Arthroscopy was initiated. Spinal needle was now inserted anteriorly, to ascertain the anterior working portal site. An incision was now made in that area, a trocar was inserted followed by a probe. There was superficial tearing of the superior labrum present. There was a partial tear long head biceps tendon with hyperemia. There were grade 1 chondromalacia changes of the glenohumeral joint with no osteochondral tears present. No loose bodies were evident. I performed an arthroscopic biceps tenotomy. I debrided the superficial labral tear down to stable tissue. The residual labrum was probed and found to be stable. Instruments now removed from glenohumeral joint. Utilizing the posterior working portal site, the trocar and cannula were inserted into the subacromial space. Arthroscopy initiated. I made an incision 2 fingerbreadths lateral to the acromion. I introduced my trocar followed by my ArthroCare ablator. I now began ablating thick subacromial bursal tissue, which exposed the undersurface of the anterior acromion. This was diminished subacromial space. There was a very prominent anterior acromion. A motorized bur was introduced and a subacromial decompression was performed. I also excised some osteophytes off the inferior aspect of the distal clavicle. The AC joint was visualized and noted to be fairly arthritic. Our motorized bur was introduced in the anterior portal site and a Kyra procedure was performed without difficulty, decompressing the AC joint nicely. I turned my attention to the rotator cuff. There appeared to be a partial tear distal supraspinatus tendon. Once I debrided that down and did note a through and through perforation. I now debrided the surrounding tissue getting down to stable rotator cuff tendon tissue. The tear measured 1.5 cm freely mobile over the footprint. I abraded the footprint with a motorized bur. I passed 2 everted mattress sutures through good bites of rotator cuff tendon. I then secured the tendon tissue to our footprint with one peek anchor. This compressed the tendon along the footprint very nicely. The residual suture limbs were clipped. The repair was probed and found to be stable. I injected 1 mL Allogen intra-articular. Instruments now removed from the portal sites. All portal sites were approximated with nylon suture. Sterile dressings were applied followed by a shoulder immobilizer. Wagner HANCOCK assisted with the procedure. The patient was awakened, transferred to a bed, and taken to recovery in stable condition.
[2017-08-19 10:44] VITALS: BP 106/61; PULSE 58; RESP 17
== END 2017-08-19 11:50 | disposition home or self-care (01) ==
LOC: OR 05:52
PROVIDERS: ATTEND Orthopaedic Surgery
DX: M75.102 Unspecified rotator cuff tear or rupture of left shoulder, not specified as traumatic (principal); M75.42 Impingement syndrome of left shoulder; S46.112A Strain of muscle, fascia and tendon of long head of biceps, left arm, initial encounter; S43.492A Other sprain of left shoulder joint, initial encounter; M94.212 Chondromalacia, left shoulder; M25.712 Osteophyte, left shoulder; M19.012 Primary osteoarthritis, left shoulder; I10 Essential (primary) hypertension; G47.33 Obstructive sleep apnea (adult) (pediatric); E78.5 Hyperlipidemia, unspecified; Z79.899 Other long term (current) drug therapy; Z79.84 Long term (current) use of oral hypoglycemic drugs; X58.XXXA Exposure to other specified factors, initial encounter
CPT/HCPCS: 29827; 29826; 29824; 64415; C1713; C1765; J2250; J1100; J2710; J0690; J2405; J3010; J1885; J2795; J0330; J2704

== ENCOUNTER → 2018-06-22 | Outpatient (CLI) | payer OTHER ==
--- NOTE | 2018-06-22 16:10 | PN ---
PROGRESS NOTE This is a 62-year-old male patient with severe symptomatic obstructive sleep apnea with an AHI of 109.7 who is still on a BiPAP at a pressure of 19/5 along with oxygen at 3 L/minute nasal cannula. The patient is coming in for an annual check. He is using a Quattro Air full-face mask. He is looking extremely well. His weight has been stable. He has remained very compliant with his BiPAP treatments and treatment has been extremely successful, as the patient continues to benefit and his Saluda score is down to 1. I checked his BiPAP compliancy data. He is set at a pressure of 19/15. He is averaging around 9.5 hours of BiPAP use every night. Leak factor is 12 L/minute. Tidal volumes is at 480 and his AHI while on treatment is down to 0.2. He is doing well. No nocturnal arousals. No nocturia. No nocturnal shortness of breath or chest pain. Weight has been stable. No altered mentation during the day. No change in mental status or increased hypersomnia or sleepiness during the day. REVIEW OF SYSTEMS: Twelve-point review of systems was done. Positive findings are all mentioned above in the history of present illness. PHYSICAL EXAMINATION: HIS VITALS: BP is 127/82, pulse 96, respirations 16, temperature 99.1, saturation 95% on room air. His height is 5 feet 11 inches, weight 323, BMI is 45. GENERAL APPEARANCE: Obese, calm, comfortable. Head is atraumatic, normocephalic. Neck short supple. There is crowding in the posterior pharynx. There is no goiter or neck masses. LUNGS: Clear to auscultation. HEART: Sounds are regular rate and rhythm. Normal S1, S2. No S3. No murmurs. ABDOMEN: Soft, nontender. No organomegaly. No direct tenderness, rebound tenderness or guarding. EXTREMITIES: No edema. No cyanosis or clubbing. NEUROLOGIC: Alert and oriented x3. No focal neurological deficits. PSYCHIATRIC: Appropriate mood and affect. SKIN: Negative for any wounds or ulceration. IMPRESSION: 1. Severe obstructive sleep apnea with an AHI of 109.7. Continues to be successfully treated with a BiPAP pressure of 19/15 along with oxygen at 3 L. 2. Morbid obesity with a stable weight. 3. Hypersomnia, recovered. Saluda score is down to 1. 4. 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 PLAN: 1. Continue BiPAP therapy at the same level of pressure. 2. Offered him new CPAP mask and supplies. 3. Weight loss. 4. See me back in a year's time in followup, earlier if needed. MMODL / IJN: [id number] /
== END | disposition home or self-care (01) ==
LOC: SLEEP 14:07
PROVIDERS: ATTEND Internal Medicine Critical Care Medicine
DX: G47.33 Obstructive sleep apnea (adult) (pediatric) (principal); E66.01 Morbid (severe) obesity due to excess calories; D75.1 Secondary polycythemia; Z99.89 Dependence on other enabling machines and devices

== ENCOUNTER → 2019-01-28 | Outpatient (CLI) | payer OTHER ==
[2019-01-28 12:03] LABS: Potassium 3.1 mmol/L (3.5-5.1)
[2019-01-28 12:10] LABS: INR 0.9 (<1.2); Partial Thromboplastin Time 23.6 sec (22.0-30.0)
[2019-01-28 12:17] LABS: Basophils # (A) 0.1 k/uL (0-0.2); Basophils % (A) 1 %; Eosinophils # (A) 0.2 k/uL (0-0.7); Eosinophils % (A) 1 %; HCT 49.1 % (39.0-53.0); HGB 16.4 gm/dL (13.0-17.5); Lymphocytes % (A) 16 %; MCH 32.5 pg (25.0-35.0); MCHC 33.3 g/dL (31.0-37.0); MCV 97.3 fL (80.0-100.0); Mean Platelet Volume 6.8; Monocytes # (A) 0.9 k/uL (0-1.0); Monocytes % (A) 7 %; Neutrophils # (A) 9.1 k/uL (1.3-7.7); Neutrophils % (A) 74 %; Platelet Count 322 k/uL (150-450); RBC 5.04 m/uL (4.30-5.90); RDW 13.6 % (11.5-15.5); WBC 12.2 k/uL (3.8-10.6)
== END ==
LOC: LABWHC1 10:41
PROVIDERS: ATTEND Orthopaedic Surgery
DX: Z01.818 Encounter for other preprocedural examination (principal); M17.11 Unilateral primary osteoarthritis, right knee
CPT/HCPCS: 36415; 80051; 85025; 85610; 85730; 87070; 93005

== ENCOUNTER → 2019-02-24 | Outpatient (CLI) | payer OTHER ==
[2019-02-24 11:21] LABS: INR 0.9 (<1.2); Partial Thromboplastin Time 22.7 sec (22.0-30.0)
[2019-02-24 11:28] LABS: Potassium 3.4 mmol/L (3.5-5.1)
[2019-02-24 11:49] LABS: Basophils # (A) 0.1 k/uL (0-0.2); Basophils % (A) 1 %; Eosinophils # (A) 0.2 k/uL (0-0.7); Eosinophils % (A) 2 %; HCT 48.2 % (39.0-53.0); HGB 16.6 gm/dL (13.0-17.5); Lymphocytes # (A) 2.4 k/uL (1.0-4.8); Lymphocytes % (A) 21 %; MCH 33.1 pg (25.0-35.0); MCHC 34.5 g/dL (31.0-37.0); MCV 95.9 fL (80.0-100.0); Mean Platelet Volume 7.1; Monocytes # (A) 0.8 k/uL (0-1.0); Monocytes % (A) 7 %; Neutrophils # (A) 7.6 k/uL (1.3-7.7); Neutrophils % (A) 67 %; Platelet Count 325 k/uL (150-450); RBC 5.02 m/uL (4.30-5.90); RDW 15.4 % (11.5-15.5); WBC 11.4 k/uL (3.8-10.6)
== END ==
LOC: LABPAT 10:48
PROVIDERS: ATTEND Orthopaedic Surgery
DX: Z01.812 Encounter for preprocedural laboratory examination (principal); M17.11 Unilateral primary osteoarthritis, right knee
CPT/HCPCS: 36415; 80051; 85025; 85610; 85730

== ENCOUNTER 2019-03-07 08:09 | Inpatient (IN) | payer OTHER ==
--- NOTE | 2019-03-06 16:58 | HP ---
HISTORY AND PHYSICAL REASON FOR ADMISSION: Surgery scheduled for 03/07/2019 HISTORY OF PRESENT ILLNESS: Xu Ornelas is a 63-year-old patient seen with symptomatic right knee osteoarthritis. Treatment options were discussed. He elected to proceed with right total knee arthroplasty. Consent was obtained. Medical clearance was provided by Dr. Gray. PAST MEDICAL HISTORY: Hypertension and hyperlipidemia. PAST SURGICAL HISTORY: Left shoulder arthroscopy, open reduction, internal fixation, left elbow fracture. MEDICATIONS: Atenolol, atorvastatin, Lyrica. ALLERGIES: None. SOCIAL HISTORY: Denies tobacco use. PHYSICAL EXAMINATION: Evaluation of the right knee is range of motion is -3 to 115 degrees. There is tenderness along the medial joint line. Crepitus medial patellofemoral compartments. There is pain with patellofemoral compression. Ligaments stable. Hip rotation without pain. Distal neurovascular exam intact. RADIOGRAPHS: Radiographs of the right knee reveal severe medial moderate patellofemoral compartment osteoarthritis. IMPRESSION: 1. Right knee osteoarthritis. 2. Hypertension. 3. Hyperlipidemia. PLAN: Right total knee arthroplasty. Surgery scheduled for 03/07/2019. MMODL / IJN: [id number] /
[~2019-03-07 08:09] MED LIST changes: +ACETAMINOPHEN TAB 500 MG TAB PO ONE; +MELOXICAM 7.5 MG TAB PO ONE; +TRANEXAMIC ACID 1,000 MG in SODIUM CHLORIDE 0.9% 100 ML IVPB ONE
[2019-03-07] MEDS ORDERED: LIDOCAINE 1% 20 ML VIAL (10MG/ML) FOR IV START INTRADERMA ONE (08:53)
[2019-03-07] MEDS ORDERED: LACTATED RINGERS 1,000 ML IV ONE (08:54)
[2019-03-07] MEDS ORDERED: DEXAMETHASONE SOD PHOS (MDV) 100 MG/10 ML VIAL IV ONE (08:55)
[2019-03-07] MEDS ORDERED: ONDANSETRON 4 MG/2 ML VIAL IVP ONE (08:55)
[2019-03-07 09:01] LABS: Glucose,Whole Blood 104 mg/dL (75-99)
[2019-03-07] MEDS ORDERED: fentaNYL (PF) 50 MCG/ML 2 ML AMP IV ONE (09:12)
[2019-03-07] MEDS ORDERED: MIDAZOLAM (PF) 2 MG/2 ML VIAL IV ONE (09:12)
[2019-03-07] MEDS ORDERED: ROPIVACAINE 1,100 MG, SODIUM CHLORIDE 0.9% 500 ML 330 ML MISCELLANE PRN ×2 (09:34)
--- NOTE | 2019-03-07 09:36 | P.ONQ ---
Anesthesiology Proc Note - PNB - Peripheral Nerve Block Performed Right Adductor Canal Infusion Time Out Performed: Yes Procedure Start Time: 09:12 Indication: Acute Post-Operative Pain Specifically requested for management of pain by DrJose: Stanley Barber Sedation Type: Sedate with meaningful contact maintained Preparation: Sterile Prep Position: Supine Catheter Depth at Skin (cm): 10 Catheter: Indwelling Needle Types: Other (see comment) (pajunk) Needle Size: 100mm (4") Needle Gauge: 18 Technique: Ultrasound Injectate: 0.5% Ropivacaine (see comment for volume) (20) Blood Aspirated: No Pain Paresthesia on Injection Noted: No Resistance on Injection: Normal Events: Uneventful and Well Tolerated
[2019-03-07] MEDS ORDERED: ROPIVACAINE 246.25 MG, EPINEPHrine 0.5 MG, KETOROLAC 30 MG, cloNIDine HCL/PF 80 MCG, WA... MISCELLANE ONE ×5 (09:42)
[2019-03-07] MEDS ORDERED: GLYCOPYRROLATE 0.2 MG/ML 2 ML VIAL ONE (10:03)
[2019-03-07] MEDS ORDERED: KETAMINE 10 MG/ML 20 ML VIAL ONE (10:03)
[2019-03-07] MEDS ORDERED: TRANEXAMIC ACID 1,000 MG/10 ML VIAL ONE (10:03)
[2019-03-07] MEDS ORDERED: fentaNYL (PF) 50 MCG/ML 2 ML AMP ONE (10:03)
[2019-03-07] MEDS ORDERED: MIDAZOLAM 2 MG/2 ML VIAL ONE (10:03)
[2019-03-07] MEDS ORDERED: SODIUM CHLORIDE 0.9% 100 ML BAG ONE (10:03)
[2019-03-07] MEDS ORDERED: ceFAZolin 3,000 MG in SODIUM CHLORIDE 0.9% IRRIGATIO 3,000 ML IRRIGATION ONE (10:35)
[2019-03-07] MEDS ORDERED: HYDROmorphone 1 MG/ML 1 ML SYRINGE IVP PRN (12:30)
[2019-03-07] MEDS ORDERED: HYDROcodone/APAP 5-325MG 1 EACH TAB PO PRN (12:30)
[2019-03-07] MEDS ORDERED: NALOXONE 0.4 MG/ML 1 ML VIAL IV PRN (12:30)
[2019-03-07] MEDS ORDERED: ONDANSETRON 4 MG/2 ML VIAL IVP PRN (12:30)
[2019-03-07] MEDS ORDERED: traMADol 50 MG TAB PO PRN (12:30)
[2019-03-07] MEDS ORDERED: HYDROmorphone 0.5 MG/0.5 ML SYRINGE IVP PRN ×2 (12:30)
--- NOTE | 2019-03-07 12:30 | P.OP ---
Date of Procedure: 03/07/19 Preoperative Diagnosis: Right knee osteoarthritis Postoperative Diagnosis: Right knee osteoarthritis Procedure(s) Performed: Right total knee arthroplasty Implants: 1. Depuy attune size 7 cruciate retaining cemented femur 2. Depuy attune size 8 fixed bearing cemented tibial baseplate 3. Depuy attune size 7 fixed-bearing cruciate retaining 12 mm polyethylene tibial insert 4. Depuy attune 41 mm all polyethylene cemented patella Anesthesia: regional (Adductor canal catheter), local, spinal Surgeon: Stanley Barber [employer] Contact Worker #1: Wagner Diallo Estimated Blood Loss (ml): 50 Pathology: other (Bone) Condition: stable Disposition: PACU Indications for Procedure: 63-year-old patient seen was symptomatic right knee osteoarthritis. After treatment options were discussed, he elected to proceed with total knee arthroplasty. Operative Findings: See description of procedure Description of Procedure: Patient was taken to the operative suite after having an adductor canal catheter placed by the department of anesthesia for postoperative pain management. Patient underwent a spinal anesthetic by the department of anesthesia. Patient was given preoperative IV intake antibiotics and TXA. A well-padded tourniquet was placed about the right lower extremity. The lower extremity was then prepped and draped in the normal sterile orthopedic fashion. The extremity was elevated, a tourniquet was insufflated to 300. A standard anterior incision was made sharply through skin. Dissection was taken down through the subcutaneous soft tissues down to the extensor mechanism. A medial arthrotomy was performed, patella was everted and knee was flexed. There was advanced osteoarthritis noted. I introduced my distal intramedullary femoral drill. I then introduced the distal femoral cutting jig. Mani HANCOCK secured the cutting jig with 2 pins. I held retractors in position while Mani HANCOCK performed the distal femoral resection through the guide area we now removed her distal femoral cutting guide. We now placed our 4-in-1 femoral cutting block and positioned and it was secured with 2 pins by Mani HANCOCK while I held the block in position. The distal femoral finishing was now completed. A proximal tibial cutting guide was positioned. I held the guide in the appropriate position with both hands well Mani HANCOCK inserted stabilizing pins into the guide. Proximal tibial cut was made. We now placed a trial femoral component into position, along with an appropriate size tibial tray and insert. We now took the knee through range of motion and had full extension good flexion and good overall soft tissue balance noted. The patella was everted and stabilized with 2 towel clips held by Mani HANCOCK while I performed a flush with patellar quad tendon utilizing a fresh sawblade. We templated the patella, appropriate drill holes were made. An appropriate trial patella was positioned, knee was taken through full range of motion with the patella tracking very nicely. The trial patella was removed. Drill holes were made through the femoral component. All trial components were removed after marking off the appropriate rotation of the tibia. Retractors were now positioned along the proximal tibia. An appropriate keel punch was made with the appropriate size tibial guide by myself on Mani HANCOCK assisted by holding retractors. At this point appropriate size implants were chosen and opened. The joint was irrigated copiously with pulse lavage mechanical irrigation. The posterior capsule was infiltrated with local analgesic. The wound was irrigated with pulse lavage mechanical irrigation. We mixed antibiotic methylmethacrylate. We placed the knee into flexion. We placed multiple retractors assisted by Mani HANCOCK to expose the proximal tibia. Once the methyl methacrylate was ready, the tibial component was cemented into place removing any excess methylmethacrylate form by both myself and Mani HANCOCK. The femoral component was cemented into place removing the removing any excess methylmethacrylate performed by both myself and Mani HANCOCK. We then inserted the appropriate size polyethylene tibial insert. We made sure that it was locked into position. We took the knee into full extension, and then back in a flexion making sure we had removed any excess methylmethacrylate. The patellar component was then cemented down and secured with clamp. Excess methylmethacrylate removed. We kept the knee in full extension, patellar clamp in position until methylmethacrylate had hardened. On ce it had hardened the patellar clamp was removed. The knee was taken through full range of motion. The patella tracked nicely. There was good soft tissue balancing. The tourniquet was now released. Additional hemostasis was achieved via electrocautery. A second gram of TXA was given. The wound again was irrigated with pulse lavage mechanical irrigation. The superficial soft tissues were infiltrated local analgesic. The extensor mechanism was repaired with Vicryl. We checked the repair with range of motion and it was stable. The subcutaneous soft tissues were repaired with Vicryl in layers. The skin was approximated with pernio/Dermabond. Sterile dressings were applied followed by loose web roll and Yousuf bandage. The patient was transferred to a bed, and taken to recovery in stable and satisfactory condition. Mani HANCOCK assisted with this complex procedure.
[2019-03-07 12:57] LABS: Glucose,Whole Blood 104 mg/dL (75-99)
--- NOTE | 2019-03-07 12:59 | XR ---
EXAMINATION TYPE: XR knee limited RT DATE OF EXAM: 03/07/2019 COMPARISON: NONE TECHNIQUE: Two views submitted HISTORY: Post op FINDINGS: There is a prosthetic knee in near anatomic alignment. There is soft tissue edema and emphysema. IMPRESSION: 1. Postoperative change. Appears in near-anatomic alignment
[2019-03-07 17:09] LABS: Glucose,Whole Blood 132 mg/dL (75-99)
[2019-03-07] MEDS: LACTATED RINGERS 1,000 ML IV SCH ×2 (18:26→22:40)
[2019-03-07] MEDS: HYDROcodone/APAP 5-325MG 1 EACH TAB PO PRN (18:26)
[2019-03-07] MEDS: ceFAZolin 3 GM in SODIUM CHLORIDE 0.9% 100 ML IVPB SCH (18:28)
[2019-03-07 19:54] VITALS: BMI 46.0
[2019-03-07] MEDS: PREGABALIN 100 MG CAP PO SCH (20:26)
[2019-03-07] MEDS: POTASSIUM CHLORIDE ER 20 MEQ TAB.ER PO SCH (20:27)
[2019-03-07] MEDS: ATENOLOL 50 MG TAB PO SCH (20:27)
[2019-03-07] MEDS: CHLORTHALIDONE 25 MG TAB PO SCH (20:27)
[2019-03-07] MEDS: DICLOFENAC 0.1% OPHTH SOLN 2.5 ML BTL RIGHT EYE SCH (20:35)
[2019-03-07] MEDS: prednisoLONE ACETATE 1% OPHTH DROPS 5 ML BTL RIGHT EYE SCH (20:36)
[2019-03-07] MEDS ORDERED: ATORVASTATIN 20 MG TAB PO SCH (21:00)
[2019-03-07] MEDS ORDERED: SENNOSIDES-DOCUSATE SODIUM 1 EACH TAB PO SCH (21:00)
[2019-03-07] MEDS ORDERED: MELATONIN 5 MG TABLET PO SCH (21:00)
[2019-03-07] MEDS ORDERED: LATANOPROST 0.005% OPHTH DROPS 2.5 ML BTL LEFT EYE SCH (21:00)
[2019-03-07 21:55] LABS: Glucose,Whole Blood 135 mg/dL (75-99)
[2019-03-07] MEDS ORDERED: OFLOXACIN 0.3% OPHTH DROPS 5 ML BOTTLE RIGHT EYE SCH (22:00)
--- NOTE | 2019-03-07 23:59 | CONS ---
CONSULTATION DATE OF CONSULTATION: March 07, 2019. REASON FOR CONSULTATION: Medical management requested by Dr. Barber. CONSULTATION: This is a 63-year-old patient of Dr. Gray who has undergone a right total knee arthroplasty. Chronic stable medical conditions include diabetes, hypertension, hyperlipidemia, obstructive sleep apnea. Does use a CPAP machine. Postprocedure pain is controlled. No nausea, vomiting. Patient did tolerate some diet. No cardiac history. REVIEW OF SYSTEMS: CONSTITUTIONAL: None. HEENT: None. RESPIRATORY: None. GASTROINTESTINAL: None. MUSCULOSKELETAL: Arthritic pain in joints. DERMATOLOGICAL, HEMATOLOGIC, LYMPHATIC: none. PSYCHIATRY none. NEUROLOGIC none. PAST MEDICAL HISTORY: Diabetes, hyperlipidemia, hypertension, osteoarthritis, obstructive sleep apnea, diabetes, diet-controlled, uses a BiPAP with oxygen at bedtime, had surgery for glaucoma, cataract in the right eye. PAST SURGICAL HISTORY: Breast surgery, left elbow surgery, left shoulder surgery, eye surgery for glaucoma. Right eye cataract removed. SOCIAL HISTORY: Smoked 2 packs a day for 20 years, stopped in 1994. Lives with his son. Alcohol occasionally. FAMILY HISTORY: Reviewed. Noncontributory to presentation. HOME MEDICATIONS: 1. Prednisone Forte 1% 1 drop to right eye q.i.d. 2. Lyrica 100 mg p.o. b.i.d. 3. Potassium 20 mEq p.o. b.i.d. 4. Ofloxacin 0.3 with 1 drop to right eye t.i.d. 5. Melatonin 10 mg q.h.s. 6. Latanoprost 0.005% 1 drop to left eye q.h.s. 7. Sodium 0.1% 1 drop to right eye q.i.d. 8. Vitamin D3 2000 units p.o. daily. 9. Lipitor 20 mg q.h.s. 10.Atenolol hydrochlorothiazide 50/25 1 tablet p.o. b.i.d. ALLERGIES: None. PHYSICAL EXAMINATION: VITAL SIGNS: Temperature 98.2, pulse 77, respiratory rate 18, blood pressure 156/91, pulse ox 95% on room air. GENERAL APPEARANCE: Well built, BMI 44.8, sitting up awake. EYES: Pupils equal. Conjunctivae normal. HEENT: External appearance of nose and ears normal. Oral cavity normal. NECK: JVD not raised. Mass not palpable. RESPIRATORY: Effort normal. LUNGS: Fair entry. CARDIOVASCULAR: First and second sounds normal. No edema. ABDOMEN: Soft, nontender. Liver and spleen not palpable. LYMPHATICS: No lymph nodes palpable in the neck and axilla. PSYCHIATRIC: Alert and oriented times three. Mood and affect normal. NEUROLOGICAL: Pupils equal. Cranial nerves grossly intact. Power and sensation grossly intact. MUSCULOSKELETAL: Dressing of the right knee. INVESTIGATIONS: Accu-Cheks are noted. ASSESSMENT: 1. Right total knee arthroplasty. 2. Diabetes mellitus type 2 on oral hypoglycemics. 3. Hypertension. 4. Hyperlipidemia. 5. Obstructive sleep apnea uses a BiPAP machine. 6. Morbid obesity BMI 44.8. PLAN: Home medications resumed. Accu-Cheks will be followed. The patient is on Lovenox for DVT prophylaxis. Care was discussed with the patient., Thank you Dr. Barber. Copy to Dr. Gray. MMSAMANTHA / WYATTN: [id number] /
[2019-03-08] MEDS: ceFAZolin 3 GM in SODIUM CHLORIDE 0.9% 100 ML IVPB SCH (00:13)
[2019-03-08] MEDS: HYDROcodone/APAP 5-325MG 1 EACH TAB PO PRN ×3 (00:13→10:55)
[2019-03-08] MEDS: DICLOFENAC 0.1% OPHTH SOLN 2.5 ML BTL RIGHT EYE SCH ×2 (06:36→13:26)
[2019-03-08] MEDS: prednisoLONE ACETATE 1% OPHTH DROPS 5 ML BTL RIGHT EYE SCH ×2 (06:36→13:26)
[2019-03-08 07:22] LABS: Glucose,Whole Blood 105 mg/dL (75-99)
[2019-03-08 07:57] LABS: Basophils % (A) 0 %; Eosinophils % (A) 0 %; HGB 14.1 gm/dL (13.0-17.5); Lymphocytes # (A) 1.3 k/uL (1.0-4.8); Lymphocytes % (A) 7 %; MCHC 33.6 g/dL (31.0-37.0); MCV 98.2 fL (80.0-100.0); Monocytes # (A) 1.2 k/uL (0-1.0); Monocytes % (A) 7 %; Neutrophils # (A) 14.2 k/uL (1.3-7.7); Neutrophils % (A) 84 %; Platelet Count 276 k/uL (150-450); RBC 4.28 m/uL (4.30-5.90); RDW 14.5 % (11.5-15.5); WBC 16.9 k/uL (3.8-10.6)
[2019-03-08 08:17] VITALS: BP 118/72; PULSE 67; RESP 16; TEMP 98.8
[2019-03-08] MEDS ORDERED: MELOXICAM 7.5 MG TAB PO SCH (09:00)
[2019-03-08] MEDS ORDERED: CHOLECALCIFEROL 1,000 UNIT TAB PO SCH (09:00)
[2019-03-08] MEDS ORDERED: ENOXAPARIN 30 MG/0.3 ML SYRINGE SQ SCH (09:00)
--- NOTE | 2019-03-08 10:34 | P.PN ---
Subjective Progress Note Date: 03/08/19 Principal diagnosis: Status post right total knee arthroplasty Patient evaluated at bedside today, his resting in a chair. Exam really well with therapy. His pain is controlled. Denies any chest pain, shortness of breath, fever or chills. Objective - Vital Signs Vital signs: Vital Signs Temp 98.8 F 03/08/19 07:00 Pulse 67 03/08/19 07:00 Resp 16 03/08/19 07:00 BP 118/72 03/08/19 07:00 Pulse Ox 96 03/08/19 07:00 Intake & Output 03/07/19 03/08/19 03/08/19 18:59 06:59 18:59 Intake Total 1451 1400 240 Output Total 50 500 Balance 1401 900 240 Intake: IV 1001 Intake, IV Titration 50 1000 Amount Lactated Ringers 1,000 ml 50 1000 @ 100 mls/hr IV .Q10H [facility]UART Rx#:[id number] Oral 400 400 240 Output: Urine 500 Estimated Blood Loss 50 Other: # Voids 1 - Exam Right lower extremity: Incision is clean, dry, and intact. The exofin fusion tape is in good condition. There is minimal soft tissue swelling and ecchymosis surrounding the medial and lateral aspects of the incision. Calf is soft, no tenderness with palpation. Plantar flexion, dorsiflexion, EHL, FHL are intact. Sensory exam to light touch throughout the extremity is intact, dorsal pedis pulses 2+. - Labs CBC & Chem 7: 03/08/19 06:59 03/07/19 08:50 Labs: Abnormal Lab Results - Last 24 Hours (Table) 03/07/19 03/07/19 03/07/19 Range/Units 12:56 16:57 21:21 WBC (3.8-10.6) k/uL RBC (4.30-5.90) m/uL Neutrophils # (1.3-7.7) k/uL Monocytes # (0-1.0) k/uL POC Glucose (mg/dL) 104 H 132 H 135 H (75-99) mg/dL 03/08/19 03/08/19 Range/Units 06:59 07:10 WBC 16.9 H (3.8-10.6) k/uL RBC 4.28 L (4.30-5.90) m/uL Neutrophils # 14.2 H (1.3-7.7) k/uL Monocytes # 1.2 H (0-1.0) k/uL POC Glucose (mg/dL) 105 H (75-99) mg/dL Assessment and Plan Plan: Assessment: Postoperative day 1 status post right total knee arthroplasty Plan: Pain control, will place patient on [place] 7.5 mg/325 mg of discharge GI and DVT prophylaxis, Eliquis 2.5mg bid for 2 weeks Wound care instructions discussed Icing and elevating techniques discussed Home therapy and nursing at discharge Medical recommendations Plan for discharge home today Time with Patient: Less than 30
--- NOTE | 2019-03-08 10:37 | P.DS ---
Providers Date of admission: 03/07/19 08:09 Expected date of discharge: 03/08/19 Attending physician: Stanley Barber Primary care physician: Nate Gray Hospital Course: Date of admission: 03/07/2019 Date of discharge: 03/08/2019 Admission diagnosis: Status post right total knee arthroplasty Discharge diagnosis: Same Attending physician: Dr. Barber Surgical procedures: Right total knee arthroplasty Brief history: Patient is a 63-year-old male with a history of with progressive primary right knee osteoarthritis. At this point patient has failed conservative treatment measures and has opted to proceed with a elective right total knee arthroplasty. Hospital course: Details of patient's surgery can be found in operative report. Patient tolerated the procedure well and was subsequently transported to orthopedic floor. Patient's orthopeidc and medical care was provided daily. Patient had daily laboratory tests performed for evaluation of overall blood counts. Patient had daily physical therapy to include strengthening range of motion as well as education with walker ambulation. Patient had daily CPM usage as part of their physical therapy program. Patient was treated with Lovenox for their postoperative DVT prophylaxis during their inpatient stay. Patient was noted to have a relatively uneventful postoperative course. Patient reported satisfactory pain control with oral pain medications by postoperative day 0. Patient showed satisfactory progress with physical therapy. Patient moved steadily through the program and had no difficulty meeting the goals by postoperative day 1. Given patient's otherwise satisfactory course and having met physical therapy goals, plan is to discharge patient home on postoperative day 1. Discharge condition/disposition: Patient will be discharged home in stable c ondition. Discharge medications: Instructions are given on resumption of patient's normal daily medications per primary care recommendation, in addition patient will be prescribed Fransisco 7.5 mg/325 mg, Colace 100 mg, Eliquis 2.5mg. Discharge instructions: 1. Wound care and infection precautions, keep incision dry and covered while showering, no lotions, creams, moisturizers. No soaking, tubs, pools, hottubs. Do not scrub over the incision. 2. Weight-bear as tolerated with walker / cane until follow-up. 3. Ice and elevate when necessary. Do not exceed 20 minutes per hour with ice pack. 4. Utilize compression sleeve until seen at first follow up appointment. 5. Visiting nursing care. 6. Home physical therapy including home CPM. 7. Pain meds and anticoagulants per prescription. 8. Pain medication has potential to cause constipation. Increase oral fluid and fiber intake. Contact primary care provider if you have not had a bowel movement within 48 hours after discharge 9. No anti-inflammatory medication until discussed at first post operative visit, this including Motrin, Aleve, Mobic, Diclofenac. 10. Follow up in office at 2 weeks postop with Mani Diallo PA-C 11. Follow up with your primary care doctor 7-10 days after discharge. 12. Contact [facility] with any questions, . Procedures: Right total knee arthroplasty Patient Condition at Discharge: Good Plan - Discharge Summary Discharge Rx Participant: No New Discharge Prescriptions: New Docusate [Colace] 100 mg PO DAILY #30 capsule Apixaban [Eliquis] 2.5 mg PO BID #60 tab HYDROcodone/APAP 7.5-325MG [[place] 7.5] 1 - 2 each PO Q6HR PRN #56 tab PRN Reason: Pain No Action Atenolol/Chlorthalidone [Atenolol-Chlorthal 50-25 Tb] 1 tab PO BID Atorvastatin Calcium [Lipitor] 20 mg PO HS Potassium Chloride [Klor-Con 20] 20 meq PO BID Latanoprost/Pf [Latanoprost 0.005% Eye Drop] 1 drop LEFT EYE HS Cholecalciferol (Vitamin D3) [Vitamin D3] 2,000 unit PO DAILY Pregabalin [Lyrica] 100 mg PO BID Melatonin 10 mg PO HS Ofloxacin 0.3% Ophth Soln [Ocuflox Ophth Soln] 1 drops RIGHT EYE TID Diclofenac Sodium [Diclofenac Sodium 0.1% Ophth Soln] 1 drop RIGHT EYE QID prednisoLONE ACETATE [Pred Forte 1%] 1 drop RIGHT EYE QID Discharge Medication List Atenolol/Chlorthalidone [Atenolol-Chlorthal 50-25 Tb] 1 tab PO BID 05/24/14 [History] Atorvastatin Calcium [Lipitor] 20 mg PO HS 04/24/17 [History] Cholecalciferol (Vitamin D3) [Vitamin D3] 2,000 unit PO DAILY 02/23/19 [History] Latanoprost/Pf [Latanoprost 0.005% Eye Drop] 1 drop LEFT EYE HS 02/23/19 [History] Potassium Chloride [Klor-Con 20] 20 meq PO BID 02/23/19 [History] Pregabalin [Lyrica] 100 mg PO BID 02/23/19 [History] Diclofenac Sodium [Diclofenac Sodium 0.1% Ophth Soln] 1 drop RIGHT EYE QID 03/07/19 [History] Melatonin 10 mg PO HS 03/07/19 [History] Ofloxacin 0.3% Ophth Soln [Ocuflox Ophth Soln] 1 drops RIGHT EYE TID 03/07/19 [History] prednisoLONE ACETATE [Pred Forte 1%] 1 drop RIGHT EYE QID 03/07/19 [History] Apixaban [Eliquis] 2.5 mg PO BID #60 tab 03/08/19 [Rx] Docusate [Colace] 100 mg PO DAILY #30 capsule 03/08/19 [Rx] HYDROcodone/APAP 7.5-325MG [[place] 7.5] 1 - 2 each PO Q6HR PRN #56 tab 03/08/19 [Rx] Follow up Appointment(s)/Referral(s): [facility], [NON-STAFF] - Wagner Diallo, ERIKA [PHYSICIAN AP OPERATOR] - 2 Weeks Activity/Diet/Wound Care/Special Instructions: Orthopedic Discharge Instructions: 1. Wound care and infection precautions, keep incision dry and covered while showering, no lotions, creams, moisturizers. No soaking, pools, hot tubs. Do not scrub over incision. 2. Weight-bear as tolerated with walker / cane until follow-up. 3. Ice and elevate when necessary. Do not exceed 20 minutes per hour with ice pack. 4. Utilize compression sleeve until seen at first follow up appointment. 5. Pain meds and anticoagulants per prescription. 6. Pain medication has potential to cause constipation. Increase oral fluid and fiber intake. Contact primary care provider if you have not had a bowel movement within 48 hours after discharge. 7. No anti-inflammatory medication until discussed at first post operative visit, this including Motrin, Aleve, Mobic, Diclofenac. 8. Follow up in office at 2 weeks postop with Mani Diallo PA-C 9. Follow up with your primary care doctor 7-10 days after discharge. 10. Contact [facility] with any questions, [phone]. 11. *Please call [facility] once home to arrange delivery of continuos passive motion (CPM) [facility] - [phone] Discharge Disposition: HOME WITH HOME HEALTH SERVICES
[2019-03-08] MEDS: ATENOLOL 50 MG TAB PO SCH (10:55)
[2019-03-08] MEDS: CHLORTHALIDONE 25 MG TAB PO SCH (10:55)
[2019-03-08] MEDS: PREGABALIN 100 MG CAP PO SCH (10:56)
[2019-03-08] MEDS: POTASSIUM CHLORIDE ER 20 MEQ TAB.ER PO SCH (10:57)
[2019-03-08] MEDS: LACTATED RINGERS 1,000 ML IV SCH (10:57)
--- NOTE | 2019-03-08 15:29 | P.PN ---
Progress Note - Text 03/08 656am 63-year-old male status post total knee replacement. Patient has an On-Q pump for postop pain control with a VAS of 2. Doing very well continue the pain pump infusion
--- NOTE | 2019-03-09 06:27 | PN ---
PROGRESS NOTE DATE OF SERVICE: March 08, 2019. PRESENTING COMPLAINT: Right knee surgery. INTERVAL HISTORY: Patient is status post right knee surgery. Some pain is present, tolerating a diet. No nausea, vomiting, did work with therapy. Stable. REVIEW OF SYSTEMS: Done for constitutional, cardiovascular, GI, pulmonary, musculoskeletal and relevant findings as above. CURRENT MEDICATIONS: Reviewed. PHYSICAL EXAMINATION: VITAL SIGNS: Temperature 98.8, pulse 67, respiratory rate 16, blood pressure 118/72, pulse ox 96% on room air. GENERAL APPEARANCE: Sitting up, comfortable. EYES: Pupils equal. Conjunctivae normal. NECK: JVD not raised. Mass not palpable. RESPIRATORY: Effort normal. LUNGS are clear. CARDIOVASCULAR: First and second sounds normal, no edema. ABDOMEN: Soft, nontender. Liver and spleen not palpable. PSYCHIATRY: Alert and oriented x3. Mood and affect normal. INVESTIGATIONS: White count 16.9, hemoglobin 14.1. ASSESSMENT: 1. Right total knee arthroplasty. 2. Diabetes mellitus type 2 on oral hypoglycemic. 3. Essential hypertension. 4. Hyperlipidemia. 5. Obstructive sleep apnea uses a BiPAP machine. 6. Morbid obesity BMI 44.8. 7. Leukocytosis likely reactive from surgery. No clinical evidence of infection. PLAN: Patient doing well. Stable. MMODL / IJN: [id number] /
== END 2019-03-08 13:52 | disposition home health service (06) | DRG 470 ==
LOC: 2ORMAIN 08:09 → 4SSUR 13:02
PROVIDERS: ADMIT Orthopaedic Surgery; ATTEND Orthopaedic Surgery
PROC: 5A09357 Assistance with Respiratory Ventilation, Less than 24 Consecutive Hours, Continuous Positive Airway Pressure (ICD-10-PCS; 2019-03-07)
PROC: 0SRC0J9 Replacement of Right Knee Joint with Synthetic Substitute, Cemented, Open Approach (ICD-10-PCS; principal; 2019-03-07 10:00)
DX: M17.11 Unilateral primary osteoarthritis, right knee (principal); Z68.41 Body mass index [BMI] 40.0-44.9, adult; E66.01 Morbid (severe) obesity due to excess calories; D72.829 Elevated white blood cell count, unspecified; I10 Essential (primary) hypertension; G47.33 Obstructive sleep apnea (adult) (pediatric); E78.5 Hyperlipidemia, unspecified; E11.9 Type 2 diabetes mellitus without complications; Z79.899 Other long term (current) drug therapy; Z87.81 Personal history of (healed) traumatic fracture; Z98.41 Cataract extraction status, right eye; Z87.891 Personal history of nicotine dependence
CPT/HCPCS: 84132; 85025; 88300

== ENCOUNTER 2019-06-27 08:23 | Day surgery (SDC) | payer OTHER ==
[2019-06-27 08:43] VITALS: TEMP 98.8
[2019-06-27] MEDS ORDERED: LACTATED RINGERS 1,000 ML IV ONE (08:48)
[2019-06-27] MEDS ORDERED: LIDOCAINE 1% 20 ML VIAL (10MG/ML) FOR IV START INTRADERMA ONE (08:48)
[2019-06-27] MEDS ORDERED: PROPOFOL 10 MG/ML 20 ML VIAL IV ONE (08:51)
--- NOTE | 2019-06-27 09:30 | P.PCN ---
Date of Procedure: 06/27/19 Description of Procedure: BRIEF HISTORY: Patient is a 63-year-old pleasant male scheduled for an elective colonoscopy as a part of evaluation of a change in bowel habits. The patient reports loose stool 3 months. Denies any prior antibiotics or current NSAID use. Does report starting potassium replacement therapy. No associated abdominal pain or blood per rectum but he does report nighttime bowel movements. Approximately 4 bowel movements per day. Last colonoscopy in 2013 significant for diverticulosis. She in the office stool studies were ordered and colonoscopy planned for random biopsies to rule out microscopic colitis. PROCEDURE PERFORMED: Colonoscopy with polypectomy and random biopsy. PREOPERATIVE DIAGNOSIS: Altered bowel habits, last colonoscopy 2013. ESTIMATED BLOOD LOSS: Minimal. IV sedation per Anesthesia. PROCEDURE: After informed consent was obtained, the patient, was brought into the endoscopy unit. IV sedation was administered by Anesthesia under continuous monitoring. Digital rectal examination was normal. Initially the Olympus CF-190 flexible video colonoscope was then inserted in the rectum, gradually advanced into the cecum without any difficulty. The terminal ileum was intubated and appeared normal with random biopsies taken. Careful examination was performed as the scope was gradually being withdrawn. Ileocecal valve and the appendiceal orifice were visualized and appeared normal. Prep was excellent. Mucosa of the cecum, ascending colon, transverse colon, descending colon, sigmoid colon, and rectum appeared normal, with random biopsies taken of the right colon and the left colon. Patient had moderate left colonic diverticulosis with numerous large and small diverticula. 3 mm diminutive sessile rectal polyp removed with cold forceps. Retroflexion was performed in the rectum and no lesions were seen. The patient tolerated the procedure well. IMPRESSION: Normal-appearing colon from rectum to cecum and normal appearing terminal ileum, with random biopsies of the terminal ileum, right colon and left colon. Moderate left colon diverticulosis. Diminutive rectal polyp removed with cold forceps. RECOMMENDATIONS: Findings of this examination were discussed with the patient and his son. Okay to resume diet. Await pathology from biopsies. Follow up with gastroenterology as previously scheduled. Repeat colonoscopy in 5 years pending pathology from biopsies and polypectomy.
[2019-06-27 09:44] VITALS: BP 124/80; PULSE 70; RESP 18
== END 2019-06-27 10:22 | disposition home or self-care (01) ==
LOC: ORWHC2ENDO 08:23
PROVIDERS: ATTEND Internal Medicine
DX: D12.0 Benign neoplasm of cecum (principal); K62.1 Rectal polyp; K57.30 Diverticulosis of large intestine without perforation or abscess without bleeding; E66.01 Morbid (severe) obesity due to excess calories; Z68.41 Body mass index [BMI] 40.0-44.9, adult; I10 Essential (primary) hypertension; E78.5 Hyperlipidemia, unspecified; G47.33 Obstructive sleep apnea (adult) (pediatric); M19.90 Unspecified osteoarthritis, unspecified site; H40.9 Unspecified glaucoma; Z86.39 Personal history of other endocrine, nutritional and metabolic disease; Z79.899 Other long term (current) drug therapy
CPT/HCPCS: 88305; 45380; 45385; J2704

== ENCOUNTER → 2019-07-05 | Outpatient (CLI) | payer OTHER ==
--- NOTE | 2019-07-05 14:04 | P.PN ---
Subjective Progress Note Date: 07/05/19 Principal diagnosis: Obstructive sleep apnea Is a case of severe TANG with an AHI of 109.7 and the patient was treated with a BiPAP pressure of 19/15 cm of water along with oxygen at the floor of 3 L. This patient is coming in for an annual check. Since his last visitation, the patient has gained around 6 pounds. Despite his efforts, he is unable to lose any weight. He used to weigh down 23 pounds on the currently is up to 329. He is using a airfit F30 fullface mask and this is one of the rare masks that he had been using with good fit. He is also wondering if there is any new mass that he can explore. On his compliance data, the patient is looking extremely well. His been averaging around 8.8 hours of BiPAP use per night. The patient has uses BiPAP more than 4 hours 100% of the time. The patient's leak is 43 L per minute. The patient's tidal volumes of 440 mL with a respiratory rate of 18 and a minute ventilation of 8.3 L per minute and has a good mask fit and his AHI is down to 1.5 while on treatment. He has no specific complaints. He seems to be alert and awake during the day. He does not follow through was performed in the activities. No reported episodes of motor vehicle accident because of feeling drowsy or sleepy. No cough. No sputum production. No chest tightness. No wheezing. No pneumonias. No sinus infections. No headaches. No altered mentation. Unfortunately, he is steadily gaining weight is up by another 6 pounds since his last visitation here in the office. No other complaints otherwise. His [place] score is at 1. Review of systems the 14 point review of system was done and the positive finds almost above history of present illness Surgical history includes a right knee replacement Objective - Exam BP is 148/81, pulse is 86 respirations 16 with a BMI of 47 with a weight of 329 with a height of 5 feet and 10 inches and his temperature is 98.7 with an oxygen saturation of 93% on room air. Gen. appearance, comfortable obese nonacute distress.The patient appeared well nourished and normally developed. Vital signs as documented. Head exam is unremarkable. No scleral icterus or corneal arcus noted. Neck is without jugular venous distension, thyromegaly, or carotid bruits. The patient has a Mallampati class IV. Carotid upstrokes are brisk bilaterally. Lungs are clear to auscultation and percussion. Cardiac exam reveals the PMI to be normally sized and situated. Rhythm is regular. First and second heart sounds normal. No murmurs, rubs or gallops. Abdominal exam reveals normal bowel sounds, no masses, no organomegaly and no aortic enlargement. Extremities are nonedematous and both femoral and pedal pulses are normal.Examination of the skin revealed no evidence of significant rashes, suspicious appearing nevi or other concerning lesions. N eurologically is awake and alert and there is no focal neurological deficits. Assessment and Plan Plan: 1 severe obstructive sleep apnea with an AHI of 109.7. The patient is undergoing successful BiPAP therapy at a pressure of 19/15 cm of water along with oxygen at 3 L flow. He has a VPAP auto which is set at S mode and is able to utilize his machine without any major difficulties. 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 Continue same BiPAP setting which is 19/15 cm of water. Continue oxygen for 3 L. I explored other mask options. I was able to offer him the dreamware medium-size under the nose fullface mask. We tried an anemia and a good mask seal here today in the office. A sample was given and the patient is going to try it out at home and decide if this is something that he would like to do in the future. Otherwise, he is doing well with his current mask. No major leaks around the mask. No major hypersomnia her sleep as his symptoms improved. History minutes successful in general. I would like to lower his pressure at a later stage once he demonstrates some weight loss. Otherwise, we'll continue the same setting and was seen back in a year's time in follow-up. The office.
== END | disposition home or self-care (01) ==
LOC: SLEEP 13:16
PROVIDERS: ATTEND Internal Medicine Critical Care Medicine
DX: G47.33 Obstructive sleep apnea (adult) (pediatric) (principal); E66.01 Morbid (severe) obesity due to excess calories; D75.1 Secondary polycythemia; Z68.42 Body mass index [BMI] 45.0-49.9, adult; Z99.89 Dependence on other enabling machines and devices

== ENCOUNTER 2021-05-31 13:48 | Observation (INO) | payer MEDICARE, OTHER ==
[2021-05-31] MEDS ORDERED: MAG HYDROX/AL HYDROX/SIMETH 30 ML CUP PO STA (14:04)
[2021-05-31] MEDS ORDERED: FAMOTIDINE 20 MG/2 ML VIAL IV STA (14:04)
[2021-05-31] MEDS ORDERED: ASPIRIN 81 MG PO STA (14:04)
[2021-05-31 14:17] LABS: Basophils # (A) 0.1 k/uL (0-0.2); Basophils % (A) 1 %; Eosinophils # (A) 0.4 k/uL (0-0.7); Eosinophils % (A) 2 %; HCT 49.6 % (39.0-53.0); Lymphocytes # (A) 1.9 k/uL (1.0-4.8); Lymphocytes % (A) 12 %; MCH 32.7 pg (25.0-35.0); MCHC 34.2 g/dL (31.0-37.0); MCV 95.6 fL (80.0-100.0); Mean Platelet Volume 7.7; Monocytes # (A) 1.3 k/uL (0-1.0); Monocytes % (A) 9 %; Neutrophils # (A) 11.2 k/uL (1.3-7.7); Neutrophils % (A) 74 %; Platelet Count 281 k/uL (150-450); RDW 12.3 % (11.5-15.5); WBC 15.2 k/uL (3.8-10.6)
[2021-05-31 14:40] LABS: ALT 20 U/L (4-49); AST 28 U/L (17-59); African American GFR (CKD) >90 (>60 ml/min/1.73 sqM); Albumin 4.3 g/dL (3.5-5.0); Alkaline Phosphatase 134 U/L (38-126); Anion Gap 8 mmol/L; Blood Urea Nitrogen 16 mg/dL (9-20); Calcium 9.5 mg/dL (8.4-10.2); Carbon Dioxide 34 mmol/L (22-30); Chloride 97 mmol/L (98-107); Glucose 104 mg/dL (74-99); Magnesium 1.8 mg/dL (1.6-2.3); Non-African American GFR(CKD) >90 (>60 ml/min/1.73 sqM); Potassium 3.5 mmol/L (3.5-5.1); Sodium 139 mmol/L (137-145); Total Bilirubin 0.8 mg/dL (0.2-1.3); Total Protein 7.5 g/dL (6.3-8.2)
[2021-05-31 14:50] LABS: INR 0.9 (<1.2); Partial Thromboplastin Time 22.2 sec (22.0-30.0)
--- NOTE | 2021-05-31 14:54 | XR ---
EXAMINATION TYPE: XR chest 2V DATE OF EXAM: 05/31/2021 COMPARISON: NONE HISTORY: Chest pain TECHNIQUE: Frontal and lateral views of the chest are obtained. FINDINGS: There is no focal air space opacity, pleural effusion, or pneumothorax seen. The cardiac silhouette size is within normal limits. Patient is rotated, there are overlying leads. Right hemid iaphragm is elevated. Aorta is dense. The osseous structures are intact. IMPRESSION: Rotated exam. Elevated right hemidiaphragm.
[2021-05-31] MEDS ORDERED: MORPHINE SULFATE 4 MG/ML SYRINGE IVP STA (15:48)
[2021-05-31] MEDS ORDERED: NALOXONE 0.4 MG/ML 1 ML VIAL IV PRN (16:39)
[2021-05-31] MEDS ORDERED: MORPHINE SULFATE 4 MG/ML SYRINGE IV PRN (16:39)
[2021-05-31] MEDS ORDERED: KETOROLAC 15 MG/ML 1 ML VIAL IVP PRN (16:39)
--- NOTE | 2021-05-31 17:05 | ED ---
General Adult HPI - General Chief complaint: Chest Pain Stated complaint: Chest Pain,SOB Time Seen by Provider: 05/31/21 13:55 Source: patient, RN notes reviewed, old records reviewed Mode of arrival: ambulatory Limitations: no limitations - History of Present Illness Initial comments: Patient is a 65-year-old male with past medical history remarkable for hypertension, hyperlipidemia, diabetes, sleep apnea who presents emergency Department complaining of a one-day history of substernal chest pain. He describes as burning pressure-like sensation located substernally with no radiation. He states he has had it since this morning. He states no change in the pain. Did not improve with antacids at home which is why % was department for evaluation. He denies any lightheadedness, blurry vision, dyspnea. Denies any abdominal pain, nausea, vomiting. Patient otherwise has no acute complaints at this time. Patient states that the pain began when he awoke this morning. Denies any worsening orthopnea, paroxysmal nocturnal dyspnea. He is chronically on CPAP at night for his sleep apnea. - Related Data Home Medications Medication Instructions Recorded Confirmed Atenolol/Chlorthalidone 1 tab PO BID 05/24/14 05/31/21 [Atenolol-Chlorthal 50-25 Tb] Atorvastatin Calcium [Lipitor] 20 mg PO HS 04/24/17 05/31/21 Cholecalciferol (Vitamin D3) 2,000 unit PO DAILY 02/23/19 05/31/21 [Vitamin D3] Latanoprost/Pf [Latanoprost 0.005% 1 drop LEFT EYE HS 02/23/19 05/31/21 Eye Drop] Melatonin 10 mg PO HS PRN 03/07/19 05/31/21 Fluticasone Propionate 1 spray EA NOSTRIL BID PRN 05/31/21 05/31/21 Potassium Chloride ER [K-Dur 10] 20 meq PO BID 05/31/21 05/31/21 Allergies Allergy/AdvReac Type Severity Reaction Status Date / Time No Known Allergies Allergy Verified 05/31/21 15:46 Review of Systems ROS Statement: Those systems with pertinent positive or pertinent negative responses have been documented in the HPI. Review of Systems: CONST: Denies fever EYES: Denies blurry vision ENT: Denies nasal congestion C/V: Endorses chest pain RESP: Denies shortness of breath GI: Denies abdominal pain : Denies dysuria SKIN: Denies rash. MSK: Denies joint pain. NEURO: Denies headache ROS Other: All systems not noted in ROS Statement are negative. Past Medical History Past Medical History: Diabetes Mellitus, Hyperlipidemia, Hypertension, Osteoarthritis (OA), Sleep Apnea/CPAP/BIPAP Additional Past Medical History / Comment(s): BS HAS BEEN NORMAL. Sleep apnea uses A BI PAP WITH O2 AT BEDTIME", previous glaucoma-had surgery for it, right eye cataract History of Any Multi-Drug Resistant Organisms: None Reported Past Surgical History: Breast Surgery, Joint Replacement Additional Past Surgical History / Comment(s): breast biopsy, colonoscopy, left elbow surgery , left shoulder surgery, eye surgery for glaucoma, right eye cataract removal, total right knee arthroplasty 03-07-19 Past Anesthesia/Blood Transfusion Reactions: No Reported Reaction Past Psychological History: No Psychological Hx Reported Smoking Status: Former smoker Past Alcohol Use History: Occasional Past Drug Use History: None Reported - Past Family History Father Family Medical History: No Reported History Additional Family Medical History / Comment(s): none General Exam - General Exam Comments Initial Comments: General: Appears in no acute distress. HEAD: Normal with no signs of head trauma. EYES: PERRLA, EOMI, conjunctiva normal, no discharge. ENT: Hearing grossly intact, normal oropharynx. RESPIRATORY: Clear breath sounds bilaterally. No wheezes, rales, or rhonchi. C/V: Regular rate and rhythm. S1 and S2 auscultated, mild 1+ pitting edema in the bilateral ankles, peripheral pulses 2+ and intact throughout ABD: Abd is soft, nontender, nondistended EXT: Normal range of motion, no obvious deformity SKIN: No rashes or lesions observed on exposed skin. NEURO: Alert and oriented 4. No focal deficits. Limitations: no limitations Course Vital Signs 05/31/21 05/31/21 05/31/21 13:49 14:08 15:18 Temperature 98.3 F 99.5 F Pulse Rate 85 84 Respiratory 18 20 Rate Blood Pressure 164/92 154/99 O2 Sat by Pulse 95 97 Oximetry 05/31/21 16:05 Temperature Pulse Rate 91 Respiratory 18 Rate Blood Pressure 129/83 O2 Sat by Pulse 94 L Oximetry Medical Decision Making - Medical Decision Making Based on the patient's presentation and physical exam, I am concerned for her neck etiology for his current symptoms. Therefore patient will be administered both antiacid medications like famotidine and Maalox in addition to an aspirin. We will obtain a cardiac workup consisting of EKG, chest x-ray, troponin and basic labs. He was in agreement this plan. He'll be placed on continuous cardiac monitoring while he is here in the department. Patient's EKG showed no signs of acute ischemia. Patient's laboratory studies were remarkable for a mild leukocytosis of 15.2, which is likely reactive as he has no obvious signs of infection, as well as a negative troponin. Covid swab is negative. Chest x-ray reveals no acute cardio primary process, there may be an elevated right hemidiaphragm. Remainder of the laboratory studies are unremarkable. Patient's heart score is moderately high at 4-5. On reevaluation he is still complaining of chest pain. I did recommend that we admit him to the hospital. He was in agreement this plan. Patient will be admitted to observation with r epeat troponin levels. I spoke with cardiology on-call, Dr. Gordon, who was in agreement this plan. I also spoke with the admitting team under Dr. Soliz, who was in agreement this plan. - Lab Data Result diagrams: 05/31/21 14:07 05/31/21 14:07 Lab Results 05/31/21 05/31/21 05/31/21 Range/Units 14:07 14:07 14:07 WBC 15.2 H (3.8-10.6) k/uL RBC 5.20 (4.30-5.90) m/uL Hgb 17.0 (13.0-17.5) gm/dL Hct 49.6 (39.0-53.0) % MCV 95.6 (80.0-100.0) fL MCH 32.7 (25.0-35.0) pg MCHC 34.2 (31.0-37.0) g/dL RDW 12.3 (11.5-15.5) % Plt Count 281 (150-450) k/uL MPV 7.7 Neutrophils % 74 % Lymphocytes % 12 % Monocytes % 9 % Eosinophils % 2 % Basophils % 1 % Neutrophils # 11.2 H (1.3-7.7) k/uL Lymphocytes # 1.9 (1.0-4.8) k/uL Monocytes # 1.3 H (0-1.0) k/uL Eosinophils # 0.4 (0-0.7) k/uL Basophils # 0.1 (0-0.2) k/uL PT 10.0 (9.0-12.0) sec INR 0.9 (<1.2) APTT 22.2 (22.0-30.0) sec Sodium 139 (137-145) mmol/L Potassium 3.5 (3.5-5.1) mmol/L Chloride 97 L (98-107) mmol/L Carbon Dioxide 34 H (22-30) mmol/L Anion Gap 8 mmol/L BUN 16 (9-20) mg/dL Creatinine 0.87 (0.66-1.25) mg/dL Est GFR (CKD-EPI)AfAm >90 (>60 ml/min/1.73 sqM) Est GFR (CKD-EPI)NonAf >90 (>60 ml/min/1.73 sqM) Glucose 104 H (74-99) mg/dL Calcium 9.5 (8.4-10.2) mg/dL Magnesium 1.8 (1.6-2.3) mg/dL Total Bilirubin 0.8 (0.2-1.3) mg/dL AST 28 (17-59) U/L ALT 20 (4-49) U/L Alkaline Phosphatase 134 H (38-126) U/L Troponin I (0.000-0.034) ng/mL NT-Pro-B Natriuret Pep pg/mL Total Protein 7.5 (6.3-8.2) g/dL Albumin 4.3 (3.5-5.0) g/dL Coronavirus (PCR) (Not Detectd) 05/31/21 05/31/21 05/31/21 Range/Units 14:07 14:07 14:52 WBC (3.8-10.6) k/uL RBC (4.30-5.90) m/uL Hgb (13.0-17.5) gm/dL Hct (39.0-53.0) % MCV (80.0-100.0) fL MCH (25.0-35.0) pg MCHC (31.0-37.0) g/dL RDW (11.5-15.5) % Plt Count (150-450) k/uL MPV Neutrophils % % Lymphocytes % % Monocytes % % Eosinophils % % Basophils % % Neutrophils # (1.3-7.7) k/uL Lymphocytes # (1.0-4.8) k/uL Monocytes # (0-1.0) k/uL Eosinophils # (0-0.7) k/uL Basophils # (0-0.2) k/uL PT (9.0-12.0) sec INR (<1.2) APTT (22.0-30.0) sec Sodium (137-145) mmol/L Potassium (3.5-5.1) mmol/L Chloride (98-107) mmol/L Carbon Dioxide (22-30) mmol/L Anion Gap mmol/L BUN (9-20) mg/dL Creatinine (0.66-1.25) mg/dL Est GFR (CKD-EPI)AfAm (>60 ml/min/1.73 sqM) Est GFR (CKD-EPI)NonAf (>60 ml/min/1.73 sqM) Glucose (74-99) mg/dL Calcium (8.4-10.2) mg/dL Magnesium (1.6-2.3) mg/dL Total Bilirubin (0.2-1.3) mg/dL AST (17-59) U/L ALT (4-49) U/L Alkaline Phosphatase (38-126) U/L Troponin I <0.012 (0.000-0.034) ng/mL NT-Pro-B Natriuret Pep 56 pg/mL Total Protein (6.3-8.2) g/dL Albumin (3.5-5.0) g/dL Coronavirus (PCR) Not Detected (Not Detectd) - EKG Data -: EKG Interpreted by Me EKG Comments: 12-lead Electrocardiogram Interpretation Note EKG was reviewed and interpreted by myself. 12-lead ECG performed at 1359 is interpreted by me as revealing normal sinus rhythm at a rate of 84 beats per minute. [place] is normal. [place] Intervals 190 ms, QRS duration is 96 seconds, QTC is 456 seconds.. There were no ST or T wave abnormalities to suggest myocardial ischemia or injury. R wave progression across the precordium was satisfactory. By my interpretation this EKG is non-diagnostic for acute ischemia. Disposition Clinical Impression: Chest pain of unknown etiology, Obesity, Leukocytosis Disposition: ADMITTED IP TO THIS HOSP Condition: Fair Referrals: Nate Gray MD [Primary Care Provider] - 1-2 days
[2021-05-31] MEDS ORDERED: FLUTICASONE 50MCG/SPRAY NASAL 16GM EA NOSTRIL PRN (20:42)
[2021-05-31] MEDS ORDERED: MELATONIN 5 MG TABLET PO PRN (20:42)
[2021-05-31] MEDS ORDERED: LATANOPROST 0.005% OPHTH DROPS 2.5 ML BTL LEFT EYE SCH (21:00)
[2021-05-31] MEDS ORDERED: ATORVASTATIN 20 MG TAB PO SCH (21:00)
[2021-05-31] MEDS ORDERED: atenoloL 50 MG TAB PO SCH (21:00)
[2021-05-31] MEDS: POTASSIUM CHLORIDE ER 10 MEQ TAB.ER.PRT PO SCH (21:16)
[2021-05-31] MEDS: CHLORTHALIDONE 25 MG TAB PO SCH (21:17)
[2021-05-31] MEDS: atenoloL 50 MG TAB PO SCH (21:17)
[2021-06-01] MEDS: atenoloL 50 MG TAB PO SCH (08:50)
[2021-06-01] MEDS: POTASSIUM CHLORIDE ER 10 MEQ TAB.ER.PRT PO SCH (08:50)
[2021-06-01] MEDS: CHLORTHALIDONE 25 MG TAB PO SCH (08:50)
[2021-06-01] MEDS ORDERED: CHOLECALCIFEROL 25 MCG (1000 IU) TABLET PO SCH (09:00)
[2021-06-01 12:06] VITALS: RESP 18
--- NOTE | 2021-06-01 12:11 | P.CRDCN ---
History of Present Illness Consult date: 06/01/21 Requesting physician: Xavi Soliz Reason for Consult (text): chest pain Chief complaint: burning chest pain History of present illness: This a pleasant 65-year-old gentleman with a past history of hypertension, hyperlipidemia, obstructive sleep apnea, uses BiPAP at night, obesity and prior smoker. 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 He admits to drinking 3 or 4 mixed drinks several days in a row and then not drinking for about a week and this is his usual pattern. Presented to the emergency department after waking up yesterday with complaints of burning in the center of his chest which he felt was similar to heartburn that he usually gets. He took Tums and [place] with no relief. The pain progressively got worse throughout the day and finally at 2 PM decided to come to the emergency department for further evaluation. Upon arrival he was given famotidine, Maalox and aspirin with relief of his symptoms. EKG on admission showed sinus mechanism with no acute ST T wave abnormalities. Labs show white blood cell count of 15.2, BUN 16, creatinine 0.87, BNP 56 and troponin negative 3. Upon examination the patient is sitting up in a chair. He is in no acute distress. He has no further complaints of chest burning. He does admit to having worsening shortness of breath and lower extremity edema over the past couple of weeks. He has been compliant with the use of his BiPAP. He's had no palpitations, dizziness or lightheadedness. He is not very active and his activity level is stable. Past Medical History Past Medical History: Diabetes Mellitus, Hyperlipidemia, Hypertension, Osteoarthritis (OA), Sleep Apnea/CPAP/BIPAP Additional Past Medical History / Comment(s): BS HAS BEEN NORMAL. Sleep apnea uses A BI PAP AT BEDTIME", previous glaucoma-had surgery for it, bilateral eye cataract. History of Any Multi-Drug Resistant Organisms: None Reported Past Surgical History: Breast Surgery, Joint Replacement Additional Past Surgical History / Comment(s): Right breast biopsy, colonoscopy, left elbow surgery , left shoulder surgery, eye surgery for glaucoma, right eye cataract removal, total right knee arthroplasty 03-07-19. Past Anesthesia/Blood Transfusion Reactions: No Reported Reaction Past Psychological History: No Psychological Hx Reported Smoking Status: Former smoker Past Alcohol Use History: Occasional Additional Past Alcohol Use History / Comment(s): STARTED SMOKING AT AGE 16 QUIT IN DEC 1984 SMOKED 2PPD Past Drug Use History: Marijuana - Past Family History Father Family Medical History: No Reported History Additional Family Medical History / Comment(s): none Medications and Allergies Home Medications Medication Instructions Recorded Confirmed Type Atenolol/Chlorthalidone 1 tab PO BID 05/24/14 05/31/21 History [Atenolol-Chlorthal 50-25 Tb] Atorvastatin Calcium [Lipitor] 20 mg PO HS 04/24/17 05/31/21 History Cholecalciferol (Vitamin D3) 2,000 unit PO DAILY 02/23/19 05/31/21 History [Vitamin D3] Latanoprost/Pf [Latanoprost 0.005% 1 drop LEFT EYE HS 02/23/19 05/31/21 History Eye Drop] Melatonin 10 mg PO HS PRN 03/07/19 05/31/21 History Fluticasone Propionate 1 spray EA NOSTRIL BID PRN 05/31/21 05/31/21 History Potassium Chloride ER [K-Dur 10] 20 meq PO BID 05/31/21 05/31/21 History Allergies Allergy/AdvReac Type Severity Reaction Status Date / Time No Known Allergies Allergy Verified 05/31/21 15:46 Physical Exam Vitals: Vital Signs Temp Pulse Pulse Resp BP BP Pulse Ox 06/01/21 07:00 98.5 F 72 16 140/89 93 L 06/01/21 01:35 98.8 F 77 24 93 L 05/31/21 19:24 98.4 F 85 24 125/80 91 L 05/31/21 17:04 87 19 139/85 95 05/31/21 16:05 91 18 129/83 94 L 05/31/21 15:18 84 20 154/99 97 05/31/21 14:08 99.5 F 05/31/21 13:49 98.3 F 85 18 164/92 95 Intake and Output 05/31/21 06/01/21 06/01/21 22:59 06:59 14:59 Other: Voiding Method Toilet Urinal # Voids 1 Weight 154.221 kg PHYSICAL EXAMINATION: This is a 65-year-old gentleman in no apparent distress at the time of my examination. VITAL SIGNS: Blood pressure 140/89, heart rate 72, respirations 16, temp 98.5F. Patient is 93 % on room air. HEENT: Head is atraumatic, normocephalic. Pupils are equal, round. Sclerae anicteric. Conjunctivae are clear. Mucous membranes of the mouth are moist. Neck is supple. There is no elevated jugular venous pressure. No carotid bruit is heard. CHEST EXAMINATION: Clear to auscultation bilaterally. No wheezes rales or rhonchi. Respirations even and nonlabored. HEART EXAMINATION: Heart regular, positive S1 and S2. No S3. No S4. No clicks, rubs or murmurs. ABDOMEN: Soft, obese nontender. Bowel sounds are heard. No organomegaly noted. EXTREMITIES: 2+ peripheral pulses with evidence of mild peripheral edema and no calf tenderness noted. NEUROLOGIC EXAMINATION: Patient is awake, alert and oriented x3. Results 05/31/21 14:07 05/31/21 14:07 Cardiac Enzymes 05/31/21 05/31/21 05/31/21 Range/Units 14:07 14:07 17:40 AST 28 (17-59) U/L Troponin I <0.012 <0.012 (0.000-0.034) ng/mL 05/31/21 Range/Units 19:42 AST (17-59) U/L Troponin I <0.012 (0.000-0.034) ng/mL Coagulation 05/31/21 Range/Units 14:07 PT 10.0 (9.0-12.0) sec APTT 22.2 (22.0-30.0) sec CBC 05/31/21 Range/Units 14:07 WBC 15.2 H (3.8-10.6) k/uL RBC 5.20 (4.30-5.90) m/uL Hgb 17.0 (13.0-17.5) gm/dL Hct 49.6 (39.0-53.0) % Plt Count 281 (150-450) k/uL Comprehensive Metabolic Panel 05/31/21 Range/Units 14:07 Sodium 139 (137-145) mmol/L Potassium 3.5 (3.5-5.1) mmol/L Chloride 97 L (98-107) mmol/L Carbon Dioxide 34 H (22-30) mmol/L BUN 16 (9-20) mg/dL Creatinine 0.87 (0.66-1.25) mg/dL Glucose 104 H (74-99) mg/dL Calcium 9.5 (8.4-10.2) mg/dL AST 28 (17-59) U/L ALT 20 (4-49) U/L Alkaline Phosphatase 134 H (38-126) U/L Total Protein 7.5 (6.3-8.2) g/dL Albumin 4.3 (3.5-5.0) g/dL Current Medications Generic Name Dose Route Start Last Admin Trade Name Freq PRN Reason Stop Dose Admin Atenolol 50 mg 05/31/21 21:00 06/01/21 08:50 Atenolol 50 Mg Tab PO 50 mg BID STUART Administration Atorvastatin Calcium 20 mg 05/31/21 21:00 05/31/21 21:16 Atorvastatin 20 Mg Tab PO 20 mg HS STUART Administration Chlorthalidone 25 mg 05/31/21 21:00 06/01/21 08:50 Chlorthalidone 25 Mg Tab PO 25 mg BID STUART Administration Cholecalciferol 50 mcg 06/01/21 09:00 06/01/21 08:50 Cholecalciferol 25 Mcg (1000 Iu) Tablet PO 50 mcg DAILY STUART Administration Fluticasone Propionate 1 spray 05/31/21 20:42 Fluticasone 50mcg/[place] Nasal 16gm EA NOSTRIL BID PRN Cold Symptoms Ketorolac Tromethamine 15 mg 05/31/21 16:39 Ketorolac 15 Mg/Ml 1 Ml Vial IVP 06/03/21 16:42 Q6HR PRN Moderate Pain Latanoprost 1 drops 05/31/21 21:00 05/31/21 21:17 Latanoprost 0.005% Ophth Drops 2.5 Ml Btl LEFT EYE 1 drops HS STUART Administration Melatonin 10 mg 05/31/21 20:42 05/31/21 21:18 Melatonin 5 Mg Tablet PO 10 mg HS PRN Administration SLEEP Morphine Sulfate 4 mg 05/31/21 16:39 Morphine Sulfate 4 Mg/Ml Syringe IV Q4HR PRN Severe Pain Naloxone HCl 0.2 mg 05/31/21 16:39 Naloxone 0.4 Mg/Ml 1 Ml Vial IV Q2M PRN Opioid Reversal Potassium Chloride 20 meq 05/31/21 21:00 06/01/21 08:50 Potassium Chloride Er 10 Meq Tab.Er.Prt PO 20 meq BID STUART Administration Intake and Output 05/31/21 06/01/21 06/01/21 22:59 06:59 14:59 Other: Voiding Method Toilet Urinal # Voids 1 Weight 154.221 kg 05/31/21 14:07 05/31/21 14:07 Assessment and Plan Assessment: #1 symptoms of chest burning, acute coronary event has been ruled out, EKG shows no ischemic changes and troponins negative 3 #2 hypertension #3 hyperlipidemia #4 obesity #5 obstructive sleep apnea Plan: From cardiology's perspective we'll obtain 2-D echo with Doppler study to assess cardiac structure and function. If there are no significant abnormalities noted on the echocardiogram patient may be discharged home and will follow-up with him in the office in a couple of weeks at which time we will determine need for further workup including stress testing. TRAVELING BUYER note has been reviewed, I agree with a documented findings and plan of care. Patient was seen and examined.
--- NOTE | 2021-06-01 14:15 | P.DS ---
Providers Date of admission: 05/31/21 16:34 Attending physician: Xavi Soliz MD Consults: 05/31/21 16:39 Consult Physician Stat Consulting Provider: Sissy Gordon Consult Reason/Comments: chest pain Do you want consulting provider notified?: Already Contacted Primary care physician: Nate Gray [facility] Course: Please refer to HPI for further details Patient Condition at Discharge: Fair Plan - Discharge Summary New Discharge Prescriptions: New Pantoprazole Sodium [Protonix] 40 mg PO AC-BRKFST #15 tablet.dr Continue Atenolol/Chlorthalidone [Atenolol-Chlorthalidone 50-25] 1 tab PO BID Atorvastatin Calcium [Lipitor] 20 mg PO HS Latanoprost/Pf [Latanoprost 0.005% Eye Drop] 1 drop LEFT EYE HS Cholecalciferol (Vitamin D3) [Vitamin D3] 2,000 unit PO DAILY Melatonin 10 mg PO HS PRN PRN Reason: SLEEP Potassium Chloride ER [K-Dur 10] 20 meq PO BID Fluticasone Propionate 1 spray EA NOSTRIL BID PRN PRN Reason: Cold Symptoms Discharge Medication List Atenolol/Chlorthalidone [Atenolol-Chlorthalidone 50-25] 1 tab PO BID 05/24/14 [History] Atorvastatin Calcium [Lipitor] 20 mg PO HS 04/24/17 [History] Cholecalciferol (Vitamin D3) [Vitamin D3] 2,000 unit PO DAILY 02/23/19 [History] Latanoprost/Pf [Latanoprost 0.005% Eye Drop] 1 drop LEFT EYE HS 02/23/19 [History] Melatonin 10 mg PO HS PRN 03/07/19 [History] Fluticasone Propionate 1 spray EA NOSTRIL BID PRN 05/31/21 [History] Potassium Chloride ER [K-Dur 10] 20 meq PO BID 05/31/21 [History] Pantoprazole Sodium [Protonix] 40 mg PO AC-BRKFST #15 tablet. 06/01/21 [Rx] Follow up Appointment(s)/Referral(s): Nate Gray MD [Primary Care Provider] - 3 Days Patient Instructions/Handouts: Chest Pain (GEN) Discharge Disposition: HOME SELF-CARE
--- NOTE | 2021-06-01 14:15 | P.HPIM ---
History of Present Illness Patient was a 65-year-old male came in with the complaints of severe retrosternal burning sensation which was not relieved by Const[place] in the thumbs. Patient was given Maalox and famotidine he had with resolution of symptoms patient is not nauseous due to symptoms started earlier today morning not related to food not patient pain is nonpleuritic patient was admitted to rule out a concurrent syndromes troponins are negative EKG showed normal sinus rhythm without any acute ST-T wave abnormality is cardio to evaluate the patient and ordered an echocardiogram and if that's negative patient was cleared to be discharged. Patient does take potassium supplementation at home which may have caused severe esophagitis. Patient will be given a dose of Protonix here. 3 sets of troponins were negative. Patient denied any history of a previous coronary artery disease. Patient denied any associated diaphoresis. His symptoms completely resolved at this time. REVIEW OF SYSTEMS: CONSTITUTIONAL: No fever, no malaise, no fatigue. HEENT: No recent visual problems or hearing problems. Denied any sore throat. CARDIOVASCULAR: No orthopnea, PND, no palpitations, no syncope. PULMONARY: No shortness of breath, no cough, no hemoptysis. GASTROINTESTINAL: No diarrhea, no nausea, no vomiting. NEUROLOGICAL: No headaches, no weakness, no numbness. HEMATOLOGICAL: Denies any bleeding or petechiae. GENITOURINARY: Denies any burning micturition, frequency, or urgency. MUSCULOSKELETAL/RHEUMATOLOGICAL: Denies any joint pain, swelling, or any muscle pain. ENDOCRINE: Denies any polyuria or polydipsia. The rest of the 14-point review of systems is negative. PHYSICAL EXAMINATION: GENERAL: The patient is alert and oriented x3, not in any acute distress. Well developed, well nourished. Obese HEENT: Pupils are round and equally reacting to light. EOMI. No scleral icterus. No conjunctival pallor. Normocephalic, atraumatic. No pharyngeal erythema. No thyromegaly. CARDIOVASCULAR: S1 and S2 present. No murmurs, rubs, or gallops. PULMONARY: Chest is clear to auscultation, no wheezing or crackles. ABDOMEN: Soft, nontender, nondistended, normoactive bowel sounds. No palpable organomegaly. MUSCULOSKELETAL: No joint swelling or deformity. EXTREMITIES: No cyanosis, clubbing, or pedal edema. NEUROLOGICAL: Gross neurological examination did not reveal any focal deficits. SKIN: No rashes. Assessment and plan -Retrosternal burning sensation: Seconded to esophagitis from possibly potassium supplementation. Patient will be given 14 days of proton inhibitor advised him to crash the potassium pills in applesauce. -Leukocytosis reactive no evidence of infection at this time -Ruled out acute current syndromes -Type 2 diabetes mellitus -Hyperlipidemia -Hypertension next and heparin obesity sleep apnea patient uses CPAP machine at home. Patient will be discharged today to follow up with PCP after echo results. Past Medical History Past Medical History: Diabetes Mellitus, Hyperlipidemia, Hypertension, Osteoarthritis (OA), Sleep Apnea/CPAP/BIPAP Additional Past Medical History / Comment(s): BS HAS BEEN NORMAL. Sleep apnea uses A BI PAP AT BEDTIME", previous glaucoma-had surgery for it, bilateral eye cataract. History of Any Multi-Drug Resistant Organisms: None Reported Past Surgical History: Breast Surgery, Joint Replacement Additional Past Surgical History / Comment(s): Right breast biopsy, colonoscopy, left elbow surgery , left shoulder surgery, eye surgery for glaucoma, right eye cataract removal, total right knee arthroplasty 03-07-19. Past Anesthesia/Blood Transfusion Reactions: No Reported Reaction Past Psychological History: No Psychological Hx Reported Smoking Status: Former smoker Past Alcohol Use History: Occasional Additional Past Alcohol Use History / Comment(s): STARTED SMOKING AT AGE 16 QUIT IN DEC 1984 SMOKED 2PPD Past Drug Use History: Marijuana - Past Family History Father Family Medical History: No Reported History Additional Family Medical History / Comment(s): none Medications and Allergies Home Medications Medication Instructions Recorded Confirmed Type Atenolol/Chlorthalidone 1 tab PO BID 05/24/14 05/31/21 History [Atenolol-Chlorthalidone 50-25] Atorvastatin Calcium [Lipitor] 20 mg PO HS 04/24/17 05/31/21 History Cholecalciferol (Vitamin D3) 2,000 unit PO DAILY 02/23/19 05/31/21 History [Vitamin D3] Latanoprost/Pf [Latanoprost 0.005% 1 drop LEFT EYE HS 02/23/19 05/31/21 History Eye Drop] Melatonin 10 mg PO HS PRN 03/07/19 05/31/21 History Fluticasone Propionate 1 spray EA NOSTRIL BID PRN 05/31/21 05/31/21 History Potassium Chloride ER [K-Dur 10] 20 meq PO BID 05/31/21 05/31/21 History Pantoprazole Sodium [Protonix] 40 mg PO AC-BRKFST #15 tablet. 06/01/21 Rx Allergies Allergy/AdvReac Type Severity Reaction Status Date / Time No Known Allergies Allergy Verified 05/31/21 15:46 Physical Exam Vitals: Vital Signs Temp Pulse Pulse Resp BP BP Pulse Ox 06/01/21 08:00 18 06/01/21 07:00 98.5 F 72 16 140/89 93 L 06/01/21 01:35 98.8 F 77 24 93 L 05/31/21 19:24 98.4 F 85 24 125/80 91 L 05/31/21 17:04 87 19 139/85 95 05/31/21 16:05 91 18 129/83 94 L 05/31/21 15:18 84 20 154/99 97 Intake and Output 05/31/21 06/01/21 06/01/21 22:59 06:59 14:59 Other: Voiding Method Toilet Urinal # Voids 1 Weight 154.221 kg Results CBC & Chem 7: 05/31/21 14:07 05/31/21 14:07 Labs: Abnormal Lab Results - Last 24 Hours (Table) 05/31/21 05/31/21 Range/Units 14:07 14:07 WBC 15.2 H (3.8-10.6) k/uL Neutrophils # 11.2 H (1.3-7.7) k/uL Monocytes # 1.3 H (0-1.0) k/uL Chloride 97 L (98-107) mmol/L Carbon Dioxide 34 H (22-30) mmol/L Glucose 104 H (74-99) mg/dL Alkaline Phosphatase 134 H (38-126) U/L Thrombosis Risk Factor Assmnt - Choose All That Apply Any of the Below Risk Factors Present?: Yes Each Factor Represents 1 point: Obesity (BMI >25) Other Risk Factors: Yes Each Risk Factor Represents 2 Points: Age 61-74 years Other congenital or acquired thrombophilia - If yes, enter type in comment: No Thrombosis Risk Factor Assessment Total Risk Factor Score: 3 Thrombosis Risk Factor Assessment Level: Moderate Risk
--- NOTE | 2021-06-01 14:58 | ECHOF ---
Referral Reason:chest pain MEASUREMENTS -------- HEIGHT: 177.8 cm WEIGHT: 154.2 kg BP: RVIDd: 3.2 cm (< 3.3) IVSd: 1.4 cm (0.6 - 1.1) LVIDd: 3.3 cm (3.9 - 5.3) LVPWd: 1.8 cm (0.6 - 1.1) IVSs: 2.0 cm LVIDs: 2.0 cm LVPWs: 2.0 cm Ao Diam: 4.2 cm (2.0 - 3.7) AV Cusp: 2.2 cm (1.5 - 2.6) LA Diam: 3.6 cm (2.7 - 3.8) MV EXCURSION: 20.241 mm (> 18.000) MV EF SLOPE: 53 mm/s (70 - 150) EPSS: 0.8 cm MV E Alan: 0.50 m/s MV DecT: 116 ms MV A Alan: 0.28 m/s MV E/A Ratio: 1.81 RAP: 5.00 mmHg RVSP: 6.99 mmHg FINDINGS -------- Sinus rhythm. This was a technically difficult study with suboptimal views. The left ventricular size is normal. There is moderate concentric left ventricular hypertrophy. O verall left ventricular systolic function is low-normal with, an EF between 50 - 55 %. The right ventricle is normal in size. RV Promident The left atrium was not well visualized. The right atrium was not well visualized. 5.0mg of Lumason was utilized for enhancement of images The aortic valve was not well visualized. The mitral valve was not well visualized. There is trace mitral regurgitation. The tricuspid valve was not well visualized. Trace tricuspid regurgitation present. Right ventric ular systolic pressure is normal at < 35 mmHg. The pulmonic valve was not well visualized. The aortic root size is normal. IVC Not well visulized. Echo free space represents a pericardial fat pad. CONCLUSIONS -------- 1. This was a technically difficult study with suboptimal views. 2. There is moderate concentric left ventricular hypertrophy. 3. Overall left ventricular systolic function is low-normal with, an EF between 50 - 55 %. 4. RV Promident 5. There is trace mitral regurgitation. 6. Trace tricuspid regurgitation present. 7. Echo free space represents a pericardial fat pad. FABRIC MACHINE OPERATOR: Sondra Joshua RDCS
[2021-06-01 15:06] VITALS: BP 129/86; PULSE 78; TEMP 99.2
[2021-06-01] MEDS: PANTOPRAZOLE 40 MG/10 ML VIAL IVP SCH ×2 (16:30→16:39)
== END 2021-06-01 17:27 | disposition home or self-care (01) ==
LOC: EC 13:48 → 6NMEDSUR 16:34
PROVIDERS: ADMIT Internal Medicine; ATTEND Internal Medicine
DX: K20.90 Esophagitis, unspecified without bleeding (principal); I10 Essential (primary) hypertension; E11.9 Type 2 diabetes mellitus without complications; G47.33 Obstructive sleep apnea (adult) (pediatric); E78.5 Hyperlipidemia, unspecified; H40.9 Unspecified glaucoma; M19.90 Unspecified osteoarthritis, unspecified site; J98.6 Disorders of diaphragm; D72.829 Elevated white blood cell count, unspecified; E66.9 Obesity, unspecified; Z68.41 Body mass index [BMI] 40.0-44.9, adult; Z20.822 Contact with and (suspected) exposure to COVID-19; Z79.899 Other long term (current) drug therapy; Z87.891 Personal history of nicotine dependence; Z96.651 Presence of right artificial knee joint; Z98.41 Cataract extraction status, right eye; Z98.890 Other specified postprocedural states
CPT/HCPCS: 93005 ×2; 96374; 99285; 36415; 94660 ×2; 83880; 80053; 83735; 84484; 85025; 85610; 85730; 87635; 71046; G0378 ×2; C8929; Q9950; 93306

== ENCOUNTER 2021-06-18 12:27 | Observation (INO) | payer MEDICARE, OTHER ==
[2021-06-18 13:11] LABS: Basophils # (A) 0.1 k/uL (0-0.2); Basophils % (A) 1 %; Eosinophils # (A) 0.1 k/uL (0-0.7); Eosinophils % (A) 1 %; HCT 51.2 % (39.0-53.0); HGB 18.3 gm/dL (13.0-17.5); Lymphocytes # (A) 1.6 k/uL (1.0-4.8); Lymphocytes % (A) 24 %; MCH 33.6 pg (25.0-35.0); MCHC 35.7 g/dL (31.0-37.0); MCV 94.1 fL (80.0-100.0); Monocytes # (A) 0.5 k/uL (0-1.0); Monocytes % (A) 7 %; Neutrophils # (A) 4.3 k/uL (1.3-7.7); Neutrophils % (A) 64 %; Platelet Count 255 k/uL (150-450); RBC 5.44 m/uL (4.30-5.90); RDW 12.8 % (11.5-15.5); WBC 6.7 k/uL (3.8-10.6)
[2021-06-18 13:23] LABS: African American GFR (CKD) >90 (>60 ml/min/1.73 sqM); Anion Gap 8 mmol/L; Blood Urea Nitrogen 15 mg/dL (9-20); Calcium 8.8 mg/dL (8.4-10.2); Carbon Dioxide 31 mmol/L (22-30); Chloride 95 mmol/L (98-107); Glucose 140 mg/dL (74-99); Non-African American GFR(CKD) >90 (>60 ml/min/1.73 sqM); Potassium 3.4 mmol/L (3.5-5.1); Sodium 134 mmol/L (137-145)
--- NOTE | 2021-06-18 15:05 | XR ---
EXAMINATION TYPE: XR chest 2V DATE OF EXAM: 06/18/2021 COMPARISON: Chest x-ray dated 05/31/2021 HISTORY: Cough and dizziness TECHNIQUE: Frontal and lateral views of the chest are obtained on 3 images. FINDINGS: There is no focal air space opacity, pleural effusion, or pneumothorax seen. The cardiac silhouette size is stable, right hemidiaphragm is again elevated bandlike increased attenuation prese nt at the left costophrenic angle and right lung base. Aorta is dense. The osseous structures are i ntact. IMPRESSION: Probable subsegmental basilar atelectatic change, correlate to exclude pneumonia and fol low-up as indicated.
--- NOTE | 2021-06-18 16:15 | ED ---
General Adult HPI - General Chief complaint: Upper Respiratory Infection Stated complaint: covid symptoms Time Seen by Provider: 06/18/21 12:30 Source: patient Mode of arrival: wheelchair Limitations: no limitations - History of Present Illness Initial comments: 65-year-old male past history of diabetes, hypertension, morbid obesity who presents emergency Department stating that he is "not getting any better". Patient was hospitalized on May 31 for complaint of chest pain and shortness of breath. Stayed overnight and had an echo performed. Reports that he was discharged home and was told everything looked okay. He has been following up Dr. Gray in office. Reports that he is having worsening shortness of breath. Unable to ambulate without having to sit. Admits to low-grade fevers, weakness and cough. He was tested for Covid previously and was negative. Patient was vaccinated with Thee [employer] Thee vaccine in February. He denies any abdominal pain. No changes in his bowel or bladder habits. Patient has been taking cough syrup and antihistamines at home without improvement. He does require CPAP use at night. Patient is concerned that he is going to as he feels like he is suffocating. No other alleviating, precipitating or modifying factors - Related Data Home Medications Medication Instructions Recorded Confirmed Atenolol/Chlorthalidone 1 tab PO BID 05/24/14 06/18/21 [Atenolol-Chlorthalidone 50-25] Atorvastatin Calcium [Lipitor] 20 mg PO HS 04/24/17 06/18/21 Cholecalciferol (Vitamin D3) 2,000 unit PO DAILY 02/23/19 06/18/21 [Vitamin D3] Latanoprost/Pf [Latanoprost 0.005% 1 drop LEFT EYE HS 02/23/19 06/18/21 Eye Drop] Melatonin 10 mg PO HS PRN 03/07/19 06/18/21 Fluticasone Propionate 1 spray EA NOSTRIL BID PRN 05/31/21 06/18/21 Potassium Chloride ER [K-Dur 10] 20 meq PO BID 05/31/21 06/18/21 Previous Rx's Medication Instructions Recorded Pantoprazole Sodium [Protonix] 40 mg PO HENRIKBRKFST #15 tablet. 06/01/21 Allergies Allergy/AdvReac Type Severity Reaction Status Date / Time No Known Allergies Allergy Verified 06/18/21 12:30 Review of Systems ROS Statement: Those systems with pertinent positive or pertinent negative responses have been documented in the HPI. ROS Other: All systems not noted in ROS Statement are negative. Past Medical History Past Medical History: Diabetes Mellitus, Hyperlipidemia, Hypertension, Osteoarthritis (OA), Sleep Apnea/CPAP/BIPAP Additional Past Medical History / Comment(s): BS HAS BEEN NORMAL. Sleep apnea uses A BI PAP AT BEDTIME", previous glaucoma-had surgery for it, bilateral eye cataract. History of Any Multi-Drug Resistant Organisms: None Reported Past Surgical History: Breast Surgery, Joint Replacement Additional Past Surgical History / Comment(s): Right breast biopsy, colonoscopy, left elbow surgery , left shoulder surgery, eye surgery for glaucoma, right eye cataract removal, total right knee arthroplasty 03-07-19. Past Anesthesia/Blood Transfusion Reactions: No Reported Reaction Past Psychological History: No Psychological Hx Reported Smoking Status: Former smoker Past Alcohol Use History: Occasional Past Drug Use History: Marijuana - Past Family History Father Family Medical History: No Reported History Additional Family Medical History / Comment(s): none General Exam Limitations: no limitations General appearance: alert, in no apparent distress Head exam: Present: atraumatic, normocephalic, normal inspection Eye exam: Present: normal appearance, PERRL, EOMI. Absent: scleral icterus, conjunctival injection, periorbital swelling ENT exam: Present: normal exam, mucous membranes moist Neck exam: Present: normal inspection. Absent: tenderness, meningismus, lymphadenopathy Respiratory exam: Present: normal lung sounds bilaterally, other (tachypnia). Absent: respiratory distress, wheezes, rales, rhonchi, stridor Cardiovascular Exam: Present: regular rate, normal rhythm, normal heart sounds. Absent: systolic murmur, diastolic murmur, rubs, gallop, clicks GI/Abdominal exam: Present: soft, normal bowel sounds. Absent: distended, tenderness, guarding, rebound, rigid Extremities exam: Present: normal inspection, full ROM, normal capillary refill. Absent: tenderness, pedal edema, joint swelling, calf tenderness Back exam: Present: normal inspection Neurological exam: Present: alert, oriented X3, CN II-XII intact Psychiatric exam: Present: normal affect, normal mood Skin exam: Present: warm, dry, intact, normal color. Absent: rash Course Vital Signs 06/18/21 06/18/21 12:28 16:04 Temperature 98.1 F Pulse Rate 86 Respiratory 22 Rate Blood Pressure 160/96 O2 Sat by Pulse 94 L 89 L Oximetry EKG Findings - EKG Comments: EKG Findings:: EKG demonstrates normal sinus rhythm with a ventricular rate of 88. WA interval 192. QRS 100. QTC of 500. No acute ST segment elevations or d epressions Medical Decision Making - Medical Decision Making Upon arrival patient is placed in room 28. A thorough history and physical exam is performed. Patient is ambulated and does drop to a pulse ox of 89%. Laboratory studies were conducted. Patient's sodium was 134. Potassium 3.4. Covid is detected. Chest x-ray performed demonstrates probable subsegmental basilar atelectatic change. Results are discussed the patient. As his symptoms are greater than 10 days he does not qualify for antibody treatment at this time. Due to hypoxia I recommended admission for which the patient did agree to. Spoke with Dr. Mckeon who agreed to admit the patient. He is currently awaiting a bed on the floor - Lab Data Result diagrams: 06/18/21 12:50 06/18/21 12:36 Lab Results 06/18/21 06/18/21 06/18/21 Range/Units 12:36 12:36 12:50 WBC 6.7 (3.8-10.6) k/uL RBC 5.44 (4.30-5.90) m/uL Hgb 18.3 H (13.0-17.5) gm/dL Hct 51.2 (39.0-53.0) % MCV 94.1 (80.0-100.0) fL MCH 33.6 (25.0-35.0) pg MCHC 35.7 (31.0-37.0) g/dL RDW 12.8 (11.5-15.5) % Plt Count 255 (150-450) k/uL MPV 8.0 Neutrophils % 64 % Lymphocytes % 24 % Monocytes % 7 % Eosinophils % 1 % Basophils % 1 % Neutrophils # 4.3 (1.3-7.7) k/uL Lymphocytes # 1.6 (1.0-4.8) k/uL Monocytes # 0.5 (0-1.0) k/uL Eosinophils # 0.1 (0-0.7) k/uL Basophils # 0.1 (0-0.2) k/uL Sodium 134 L (137-145) mmol/L Potassium 3.4 L (3.5-5.1) mmol/L Chloride 95 L (98-107) mmol/L Carbon Dioxide 31 H (22-30) mmol/L Anion Gap 8 mmol/L BUN 15 (9-20) mg/dL Creatinine 0.78 (0.66-1.25) mg/dL Est GFR (CKD-EPI)AfAm >90 (>60 ml/min/1.73 sqM) Est GFR (CKD-EPI)NonAf >90 (>60 ml/min/1.73 sqM) Glucose 140 H (74-99) mg/dL Plasma Lactic Acid Kenneth (0.7-2.0) mmol/L Calcium 8.8 (8.4-10.2) mg/dL Coronavirus (PCR) Detected A (Not Detectd) 06/18/21 Range/Units 13:05 WBC (3.8-10.6) k/uL RBC (4.30-5.90) m/uL Hgb (13.0-17.5) gm/dL Hct (39.0-53.0) % MCV (80.0-100.0) fL MCH (25.0-35.0) pg MCHC (31.0-37.0) g/dL RDW (11.5-15.5) % Plt Count (150-450) k/uL MPV Neutrophils % % Lymphocytes % % Monocytes % % Eosinophils % % Basophils % % Neutrophils # (1.3-7.7) k/uL Lymphocytes # (1.0-4.8) k/uL Monocytes # (0-1.0) k/uL Eosinophils # (0-0.7) k/uL Basophils # (0-0.2) k/uL Sodium (137-145) mmol/L Potassium (3.5-5.1) mmol/L Chloride (98-107) mmol/L Carbon Dioxide (22-30) mmol/L Anion Gap mmol/L BUN (9-20) mg/dL Creatinine (0.66-1.25) mg/dL Est GFR (CKD-EPI)AfAm (>60 ml/min/1.73 sqM) Est GFR (CKD-EPI)NonAf (>60 ml/min/1.73 sqM) Glucose (74-99) mg/dL Plasma Lactic Acid Kenneth 1.4 (0.7-2.0) mmol/L Calcium (8.4-10.2) mg/dL Coronavirus (PCR) (Not Detectd) Disposition Clinical Impression: Cough, Hypoxia, COVID-19, Hypokalemia Disposition: ADMITTED IP TO THIS [facility] Condition: Stable Is patient prescribed a controlled substance at d/c from ED?: No Referrals: Nate Gray MD [Primary Care Provider] - 1-2 days Decision to Admit Reason: Admit from EC Decision Date: 06/18/21 Decision Time: 16:43
[2021-06-18] MEDS ORDERED: IBUPROFEN 400 MG TAB PO PRN (16:43)
[2021-06-18] MEDS ORDERED: NALOXONE 0.4 MG/ML 1 ML VIAL IV PRN (16:43)
[2021-06-18] MEDS ORDERED: MELATONIN 5 MG TABLET PO PRN (16:43)
[2021-06-18] MEDS ORDERED: ACETAMINOPHEN TAB 325 MG TAB PO PRN (16:43)
[2021-06-18] MEDS ORDERED: FLUTICASONE 50MCG/SPRAY NASAL 16GM EA NOSTRIL PRN (16:43)
[2021-06-18] MEDS ORDERED: dexAMETHasone 2 MG TAB PO SCH (16:46)
--- NOTE | 2021-06-18 16:54 | P.HPIM ---
History of Present Illness Patient is a pleasant 65-year-old male obese history of sleep apnea and uses CPAP machine at home came in with complains of cough with whitish sputum production, patient had a chest excision not show any significant abnormality except for possible bibasilar atelectasis. Patient came back positive for Covid 19. Patient cannot exactly pinpoint his symptoms patient was having cough apparently even before his previous hospitalization which was on June 01. At that time patient was admitted to rule out a concurrent syndromes and patient was diagnosed with gastro-spell reflux disease and was discharged on Protonix. Today patient is found to have oxygen saturation 79% on room air because of which I was requested to admit the patient considering his Covid 19. Patient is also bit hyponatremic and hypokalemic and this is secondary to the diuretics is receiving for blood pressure. Patient gives me a vague history of orthopnea paroxysmal nocturnal dyspnea. REVIEW OF SYSTEMS: CONSTITUTIONAL: No fever, no malaise, no fatigue. HEENT: No recent visual problems or hearing problems. Denied any sore throat. CARDIOVASCULAR: No chest pain, orthopnea, PND, no palpitations, no syncope. PULMONARY:, no hemoptysis. GASTROINTESTINAL: No diarrhea, no nausea, no vomiting, no abdominal pain. NEUROLOGICAL: No headaches, no weakness, no numbness. HEMATOLOGICAL: Denies any bleeding or petechiae. GENITOURINARY: Denies any burning micturition, frequency, or urgency. MUSCULOSKELETAL/RHEUMATOLOGICAL: Denies any joint pain, swelling, or any muscle pain. ENDOCRINE: Denies any polyuria or polydipsia. The rest of the 14-point review of systems is negative. PHYSICAL EXAMINATION: GENERAL: The patient is alert and oriented x3, not in any acute distress. Morbidly obese HEENT: Pupils are round and equally reacting to light. EOMI. No scleral icterus. No conjunctival pallor. Normocephalic, atraumatic. No pharyngeal erythema. No thyromegaly. CARDIOVASCULAR: S1 and S2 present. No murmurs, rubs, or gallops. PULMONARY: Chest is clear to auscultation, no wheezing or crackles. ABDOMEN: Soft, nontender, nondistended, normoactive bowel sounds. No palpable organomegaly. MUSCULOSKELETAL: No joint swelling or deformity. EXTREMITIES: No cyanosis, clubbing, or pedal edema. NEUROLOGICAL: Gross neurological examination did not reveal any focal deficits. SKIN: No rashes. Assessment and plan Shortness of breath and hypoxia: Patient is obese does have sleep apnea may have obesity hypoventilation syndrome as well. And cigarette his positive for Covid 19 and the acuity of onset of symptoms patient was started on Decadron will monitor him overnight will also order to obtain a BNP although clinically patient doesn't appear to be in CHF patient had a normal ejection fraction the past. Pulmonary will be consulted -Hyponatremia: Secondary to diuretic therapy which is being held -Hypertension atenolol will be continued patient may need a second medication which will be the losartan and amlodipine -Sleep apnea -Patient had a history of diabetes mellitus although doesn't take any medications at home patient blood sugars are bit elevated discussing his the steroids patient will be started on the sliding scale insulin -Hyperlipidemia -Obesity DVT prophylaxis: Lovenox Past Medical History Past Medical History: Diabetes Mellitus, Hyperlipidemia, Hypertension, Osteoarthritis (OA), Sleep Apnea/CPAP/BIPAP Additional Past Medical History / Comment(s): BS HAS BEEN NORMAL. Sleep apnea uses A BI PAP AT BEDTIME", previous glaucoma-had surgery for it, bilateral eye cataract. History of Any Multi-Drug Resistant Organisms: None Reported Past Surgical History: Breast Surgery, Joint Replacement Additional Past Surgical History / Comment(s): Right breast biopsy, colonoscopy, left elbow surgery , left shoulder surgery, eye surgery for glaucoma, right eye cataract removal, total right knee arthroplasty 03-07-19. Past Anesthesia/Blood Transfusion Reactions: No Reported Reaction Past Psychological History: No Psychological Hx Reported Smoking Status: Former smoker Past Alcohol Use History: Occasional Past Drug Use History: Marijuana - Past Family History Father Family Medical History: No Reported History Additional Family Medical History / Comment(s): none Medications and Allergies Home Medications Medication Instructions Recorded Confirmed Type Atenolol/Chlorthalidone 1 tab PO BID 05/24/14 06/18/21 History [Atenolol-Chlorthalidone 50-25] Atorvastatin Calcium [Lipitor] 20 mg PO HS 04/24/17 06/18/21 History Cholecalciferol (Vitamin D3) 2,000 unit PO DAILY 02/23/19 06/18/21 History [Vitamin D3] Latanoprost/Pf [Latanoprost 0.005% 1 drop LEFT EYE HS 02/23/19 06/18/21 History Eye Drop] Melatonin 10 mg PO HS PRN 03/07/19 06/18/21 History Fluticasone Propionate 1 spray EA NOSTRIL BID PRN 05/31/21 06/18/21 History Potassium Chloride ER [K-Dur 10] 20 meq PO BID 05/31/21 06/18/21 History Pantoprazole Sodium [Protonix] 40 mg PO AC-BRKFST #15 tablet. 06/01/21 06/18/21 Rx Allergies Allergy/AdvReac Type Severity Reaction Status Date / Time No Known Allergies Allergy Verified 06/18/21 12:30 Physical Exam Vitals: Vital Signs Temp Pulse Resp BP Pulse Ox 06/18/21 16:04 89 L 06/18/21 12:28 98.1 F 86 22 160/96 94 L Intake and Output 06/18/21 06/18/21 06/18/21 06:59 14:59 22:59 Other: Weight 151.953 kg Results CBC & Chem 7: 06/18/21 12:50 06/18/21 12:36 Labs: Abnormal Lab Results - Last 24 Hours (Table) 06/18/21 06/18/21 06/18/21 Range/Units 12:36 12:36 12:50 Hgb 18.3 H (13.0-17.5) gm/dL Sodium 134 L (137-145) mmol/L Potassium 3.4 L (3.5-5.1) mmol/L Chloride 95 L (98-107) mmol/L Carbon Dioxide 31 H (22-30) mmol/L Glucose 140 H (74-99) mg/dL Coronavirus (PCR) Detected A (Not Detectd)
[2021-06-18] MEDS ORDERED: POTASSIUM CHLORIDE ER 20 MEQ TAB.ER PO STA (16:55)
[2021-06-18] MEDS: SODIUM CHLORIDE 0.9% 1,000 ML IV SCH (17:13)
[2021-06-18] MEDS: DEXAMETHASONE SOD PHOSPHATE 10 MG/ML 1 ML VIAL IV SCH (17:14)
[2021-06-18] MEDS: ALBUTEROL HFA INHALER INHALATION SCH ×2 (17:19→18:55)
[2021-06-18 18:18] LABS: Glucose,Whole Blood 100 mg/dL (75-99)
[2021-06-18] MEDS: INSULIN ASPART (NovoLOG) 100 UNIT/ML VIAL SQ SCH ×2 (18:22→20:46)
[2021-06-18 20:26] LABS: Glucose,Whole Blood 107 mg/dL (75-99)
[2021-06-18] MEDS: ASCORBIC ACID 500 MG TAB PO SCH (20:45)
[2021-06-18] MEDS ORDERED: ATORVASTATIN 20 MG TAB PO SCH (21:00)
[2021-06-18] MEDS ORDERED: LATANOPROST 0.005% OPHTH DROPS 2.5 ML BTL LEFT EYE SCH (21:00)
[2021-06-18 22:28] LABS: Appearance,Urine Clear (Clear); Bilirubin,Urine Negative (Negative); Blood,Urine Negative (Negative); Color,Urine Yellow; Glucose,Urine (UA) Negative (Negative); Ketones,Urine 1+ (Negative); Leukocyte Esterase,Urine Negative (Negative); Nitrite,Urine Negative (Negative); Protein,Urine Trace (Negative); Specific Gravity,Urine 1.023 (1.001-1.035)
[2021-06-19] MEDS: ALBUTEROL HFA INHALER INHALATION SCH ×4 (03:55→12:07)
[2021-06-19] MEDS: SODIUM CHLORIDE 0.9% 1,000 ML IV SCH (06:23)
[2021-06-19 06:26] VITALS: RESP 18
[2021-06-19 07:13] LABS: Glucose,Whole Blood 126 mg/dL (75-99)
[2021-06-19] MEDS: INSULIN ASPART (NovoLOG) 100 UNIT/ML VIAL SQ SCH ×2 (07:14→11:40)
[2021-06-19] MEDS ORDERED: PANTOPRAZOLE 40 MG TABLET PO SCH (07:30)
[2021-06-19] MEDS: ASCORBIC ACID 500 MG TAB PO SCH (08:31)
[2021-06-19] MEDS: DEXAMETHASONE SOD PHOSPHATE 10 MG/ML 1 ML VIAL IV SCH (08:32)
[2021-06-19] MEDS ORDERED: ENOXAPARIN 40 MG/0.4 ML SYRINGE SQ SCH (09:00)
[2021-06-19] MEDS ORDERED: atenoloL 50 MG TAB PO SCH (09:00)
[2021-06-19] MEDS ORDERED: ZINC SULFATE 220 MG CAP PO SCH (09:00)
[2021-06-19] MEDS ORDERED: CHOLECALCIFEROL 25 MCG (1000 IU) TABLET PO SCH (09:00)
[2021-06-19 10:33] VITALS: BP 137/94; PULSE 85; TEMP 97.5
[2021-06-19 11:13] LABS: Basophils # (A) 0.03 X 10*3/uL (0.00-0.10); Basophils % (A) 0.6 %; Eosinophils # (A) 0 X 10*3/uL (0.04-0.35); Eosinophils % (A) 0 %; HCT 51.8 % (39.6-50.0); HGB 17.6 g/dL (13.0-17.0); Lymphocytes # (A) 0.73 X 10*3/uL (0.90-5.00); Lymphocytes % (A) 14.6 %; MCH 31.8 pg (27.0-32.0); MCV 93.7 fL (80.0-97.0); Mean Platelet Volume 11.4 fL (9.5-12.2); Monocytes # (A) 0.43 X 10*3/uL (0.20-1.00); Monocytes % (A) 8.6 %; Neutrophils # (A) 3.79 X 10*3/uL (1.80-7.70); Neutrophils % (A) 75.6 %; Platelet Count 279 X 10*3/uL (140-440); RBC 5.53 X 10*6/uL (4.40-5.60); RDW 11.9 % (11.5-14.5); WBC 5.01 X 10*3/uL (4.50-10.00)
[2021-06-19 11:33] LABS: African American GFR (CKD) 107.9 (60.0-200.0); Anion Gap 10.8 mmol/L (4.00-12.00); Calcium 8.3 mg/dL (8.7-10.3); Carbon Dioxide 30.2 mmol/L (21.6-31.8); Non-African American GFR(CKD) 93.1 (60.0-200.0); Potassium 3.6 mmol/L (3.5-5.5)
[2021-06-19 11:39] LABS: Glucose,Whole Blood 121 mg/dL (75-99)
[2021-06-19] MEDS ORDERED: POTASSIUM CHLORIDE ER 20 MEQ TAB.ER PO STA (12:42)
--- NOTE | 2021-06-19 12:49 | P.DS ---
Providers Date of admission: 06/18/21 16:43 Attending physician: Partha Mckeon Consults: 06/18/21 16:55 Consult Physician Routine Consulting Provider: Pio Hernandez Consult Reason/Comments: COVID 19 Do you want consulting provider notified?: Yes Primary care physician: [facility] Course: Patient is a pleasant 65-year-old male obese history of sleep apnea and uses CPAP machine at home came in with complains of cough with whitish sputum production, patient had a chest excision not show any significant abnormality except for possible bibasilar atelectasis. Patient came back positive for Covid 19. Patient cannot exactly pinpoint his symptoms patient was having cough apparently even before his previous hospitalization which was on June 01. At that time patient was admitted to rule out a concurrent syndromes and patient was diagnosed with gastro-spell reflux disease and was discharged on Protonix. Today patient is found to have oxygen saturation 79% on room air because of which I was requested to admit the patient considering his Covid 19. Patient is also bit hyponatremic and hypokalemic and this is secondary to the diuretics is receiving for blood pressure. Patient gives me a vague history of orthopnea paroxysmal nocturnal dyspnea. 06/19/2021 Patient is on room air not requiring oxygen although patient still complaining of some shortness of breath of which although improved compared to yesterday as per patient. Patient shortness of breath appears to be multifactorial including sleep apnea, restrictive lung disease from obesity with a superimposed Covid 19. Patient is not requiring any oxygen because of which pulmonary recommended follow-up as an outpatient and patient will be discharged on Decadron for 6 more days. Patient was also hypokalemic secondary to chlorthalidone which was held yesterday patient will be resumed on chlorthalidone patient is on potassium supplements already will order a repeat basic metabolic profile. PHYSICAL EXAMINATION: GENERAL: The patient is alert and oriented x3, not in any acute distress. Morbidly obese HEENT: Pupils are round and equally reacting to light. EOMI. No scleral icterus. No conjunctival pallor. Normocephalic, atraumatic. No pharyngeal erythema. No thyromegaly. CARDIOVASCULAR: S1 and S2 present. No murmurs, rubs, or gallops. PULMONARY: Chest is clear to auscultation, no wheezing or crackles. ABDOMEN: Soft, nontender, nondistended, normoactive bowel sounds. No palpable organomegaly. MUSCULOSKELETAL: No joint swelling or deformity. EXTREMITIES: No cyanosis, clubbing, or pedal edema. NEUROLOGICAL: Gross neurological examination did not reveal any focal deficits. SKIN: No rashes. Assessment and plan Shortness of breath and hypoxia: Patient is obese does have sleep apnea may have obesity hypoventilation syndrome as well. Shortness of breath improved patient does have positive Covid. -Hyponatremia: Secondary to diuretic therapy -Hypertension -Sleep apnea -Patient had a history of diabetes mellitus although doesn't take any medications at home -Hyperlipidemia -Obesity Patient Condition at Discharge: Stable Plan - Discharge Summary Discharge Rx Participant: No New Discharge Prescriptions: New Dexamethasone [Decadron] 6 mg PO DAILY #6 tablet Zinc Sulfate [Orazinc] 220 mg PO DAILY #20 cap Ascorbic Acid [Vitamin C] 500 mg PO BID #30 tab Continue Atenolol/Chlorthalidone [Atenolol-Chlorthalidone 50-25] 1 tab PO BID Atorvastatin Calcium [Lipitor] 20 mg PO HS Latanoprost/Pf [Latanoprost 0.005% Eye Drop] 1 drop LEFT EYE HS Cholecalciferol (Vitamin D3) [Vitamin D3] 2,000 unit PO DAILY Melatonin 10 mg PO HS PRN PRN Reason: SLEEP Potassium Chloride ER [K-Dur 10] 20 meq PO BID Fluticasone Propionate 1 spray EA NOSTRIL BID PRN PRN Reason: Cold Symptoms Pantoprazole Sodium [Protonix] 40 mg PO AC-BRKFST #15 tablet.dr Discharge Medication List Atenolol/Chlorthalidone [Atenolol-Chlorthalidone 50-25] 1 tab PO BID 05/24/14 [History] Atorvastatin Calcium [Lipitor] 20 mg PO HS 04/24/17 [History] Cholecalciferol (Vitamin D3) [Vitamin D3] 2,000 unit PO DAILY 02/23/19 [History] Latanoprost/Pf [Latanoprost 0.005% Eye Drop] 1 drop LEFT EYE HS 02/23/19 [History] Melatonin 10 mg PO HS PRN 03/07/19 [History] Fluticasone Propionate 1 spray EA NOSTRIL BID PRN 05/31/21 [History] Potassium Chloride ER [K-Dur 10] 20 meq PO BID 05/31/21 [History] Pantoprazole Sodium [Protonix] 40 mg PO MARK #15 tablet. 06/01/21 [Rx] Ascorbic Acid [Vitamin C] 500 mg PO BID #30 tab 06/19/21 [Rx] Dexamethasone [Decadron] 6 mg PO DAILY #6 tablet 06/19/21 [Rx] Zinc Sulfate [Orazinc] 220 mg PO DAILY #20 cap 06/19/21 [Rx] Follow up Appointment(s)/Referral(s): Nate Gray MD [Primary Care Provider] - 3 Days
--- NOTE | 2021-06-19 13:14 | P.CNPUL ---
History of Present Illness Consult date: 06/19/21 Requesting physician: Partha Mckeon Reason for consult: dyspnea, cough, abnormal CXR/CT Chief complaint: Shortness of breath and cough. History of present illness: Pulmonary/critical care consult dated 06/19/2021. 65-year-old male, seen in room 484. The patient came to the emergency [facility], complaining of upper respiratory tract symptoms. The patient has a history of diabetes, hypertension, and morbid obesity. The patient was hospitalized for just 1 day back on May 31, discharged on the for complaints of chest pain and shortness of breath and possibly heartburn. He stayed overnight, and echocardiogram was performed. Beginning on June 09, the patient states that his respiratory status is worsening, any complaining of shortness of breath, and cough, with phlegm production. No fever or chills. No muscle aches or joint aches. The patient did receive the [employer] vaccine in February. Previously, he tested negative for coronavirus but on this admission, he tested positive. Currently, his major issue is cough and phlegm. He denies being short of breath and he is currently on room air. He denies any nausea, vomiting, diarrhea, or abdominal pain. He also denies all genitourinary complaints. White count 5.01, hemoglobin 17.6, hematocrit 51.8, and platelet count is normal. Sodium and potassium are normal. Chloride is 95, CO2 30, anion gap 11, BUN 12, creatinine 0.8. Coronavirus testing was positive. Urine was negative. Chest x-ray show some minimal bibasilar atelectatic changes or infiltrates. Review of Systems REVIEW OF SYSTEMS: CONSTITUTIONAL: [Negative.] NEUROLOGIC: [ Negative.] HEENT: [ Negative.] CARDIAC: [Negative.] PULMONARY: Cough and shortness of breath, with phlegm production. GI: [Negative.] : [Negative.] RHEUMATOLOGIC: [ Negative.] IMMUNOLOGIC: [ Negative.] ENDOCRINE: [Negative. ] DERMATOLOGIC: [Negative.] Past Medical History Past Medical History: Diabetes Mellitus, Hyperlipidemia, Hypertension, Osteoarthritis (OA), Sleep Apnea/CPAP/BIPAP Additional Past Medical History / Comment(s): BS HAS BEEN NORMAL. Sleep apnea uses A BI PAP AT BEDTIME", previous glaucoma-had surgery for it, bilateral eye cataract. History of Any Multi-Drug Resistant Organisms: None Reported Past Surgical History: Breast Surgery, Joint Replacement Additional Past Surgical History / Comment(s): Right breast biopsy, colonoscopy, left elbow surgery , left shoulder surgery, eye surgery for glaucoma, right eye cataract removal, total right knee arthroplasty 03-07-19. Past Anesthesia/Blood Transfusion Reactions: No Reported Reaction Past Psychological History: No Psychological Hx Reported Smoking Status: Former smoker Past Alcohol Use History: Occasional Additional Past Alcohol Use History / Comment(s): STARTED SMOKING AT AGE 16 QUIT IN DEC 1984 SMOKED 2PPD Past Drug Use History: Marijuana - Past Family History Father Family Medical History: No Reported History Additional Family Medical History / Comment(s): none Medications and Allergies Home Medications Medication Instructions Recorded Confirmed Type Atenolol/Chlorthalidone 1 tab PO BID 05/24/14 06/18/21 History [Atenolol-Chlorthalidone 50-25] Atorvastatin Calcium [Lipitor] 20 mg PO HS 04/24/17 06/18/21 History Cholecalciferol (Vitamin D3) 2,000 unit PO DAILY 02/23/19 06/18/21 History [Vitamin D3] Latanoprost/Pf [Latanoprost 0.005% 1 drop LEFT EYE HS 02/23/19 06/18/21 History Eye Drop] Melatonin 10 mg PO HS PRN 03/07/19 06/18/21 History Fluticasone Propionate 1 spray EA NOSTRIL BID PRN 05/31/21 06/18/21 History Potassium Chloride ER [K-Dur 10] 20 meq PO BID 05/31/21 06/18/21 History Pantoprazole Sodium [Protonix] 40 mg PO AC-BRKFST #15 tablet. 06/01/21 06/18/21 Rx Ascorbic Acid [Vitamin C] 500 mg PO BID #30 tab 06/19/21 Rx Dexamethasone [Decadron] 6 mg PO DAILY #6 tablet 06/19/21 Rx Zinc Sulfate [Orazinc] 220 mg PO DAILY #20 cap 06/19/21 Rx Allergies Allergy/AdvReac Type Severity Reaction Status Date / Time No Known Allergies Allergy Verified 06/18/21 12:30 Physical Exam Osteopathic Statement: *. No significant issues noted on an osteopathic structural exam other than those noted in the History and Physical/Consult. Vitals: Vital Signs Temp Pulse Pulse Resp BP BP Pulse Ox 06/19/21 10:32 97.5 F L 85 18 137/94 93 L 06/19/21 06:24 97.9 F 91 18 144/94 92 L 06/19/21 02:00 98.5 F 97 144/88 90 L 06/18/21 22:40 98.7 F 90 19 127/76 92 L 06/18/21 18:10 97.9 F 85 18 131/84 93 L 06/18/21 17:00 98.0 F 80 18 140/88 95 06/18/21 16:04 89 L Intake and Output 06/18/21 06/19/21 06/19/21 22:59 06:59 14:59 Other: # Voids 1 2 Weight 151.953 kg No acute distress, oriented 3. Room air saturation is 93-94%. HEENT examination is grossly unremarkable. Neck supple. Full range of motion. No adenopathy thyromegaly or neck vein distention. Cardiovascular examination reveals regular rhythm rate. S1-S2 normal. No S3 or S4. No discernible murmur noted. Heart rate 85 bpm. Lungs reveal mostly clear breath sounds. Mild scattered rhonchi. No wheezes or crackles. Breath sounds are equal bilaterally. Abdomen soft bowel sounds are heard. No masses or tenderness. Extremities are intact. No cyanosis clubbing or edema. Skin is without rash or lesion. Neurologic examination is brief but nonfocal. Results - Laboratory Findings CBC and BMP: 06/19/21 06:57 06/19/21 06:57 Abnormal lab findings: Abnormal Labs 06/18/21 06/18/21 06/18/21 12:36 12:36 12:50 Hgb 18.3 H Hct Lymphocytes # Eosinophils # Sodium 134 L Potassium 3.4 L Chloride 95 L Carbon Dioxide 31 H Glucose 140 H POC Glucose (mg/dL) Calcium Urine Protein Urine Ketones Coronavirus (PCR) Detected A 06/18/21 06/18/21 06/18/21 18:14 20:26 22:00 Hgb Hct Lymphocytes # Eosinophils # Sodium Potassium Chloride Carbon Dioxide Glucose POC Glucose (mg/dL) 100 H 107 H Calcium Urine Protein Trace H Urine Ketones 1+ H Coronavirus (PCR) 06/19/21 06/19/21 06/19/21 06:57 06:57 07:12 Hgb 17.6 H Hct 51.8 H Lymphocytes # 0.73 L Eosinophils # 0 L Sodium Potassium Chloride 95 L Carbon Dioxide Glucose 114 H POC Glucose (mg/dL) 126 H Calcium 8.3 L Urine Protein Urine Ketones Coronavirus (PCR) 06/19/21 11:38 Hgb Hct Lymphocytes # Eosinophils # Sodium Potassium Chloride Carbon Dioxide Glucose POC Glucose (mg/dL) 121 H Calcium Urine Protein Urine Ketones Coronavirus (PCR) - Diagnostic Findings Chest x-ray: image reviewed Assessment and Plan Assessment: Coronavirus infection, with possible coronavirus pneumonia, with minimal pulmonary complaints and certainly not shortness of breath or hypoxemia. Obesity. Diabetes mellitus. Hyperlipidemia. Hypertension. Osteoarthritis. Sleep apnea syndrome, currently maintained on CPAP. Bilateral cataracts. Plan: Plan dated 06/19/2021. The patient is seen and examined. A complete history is performed. The patient appears to be doing relatively well, and I talked him about the possibility of being discharged home. He can certainly take vitamin C, vitamin D3, zinc, and Decadron at home. Should he worsen, or shortness shortness of breath or other pulmonary complaints become more severe, the patient can certainly come back to the emergency room. I will pass this along to the primary service. No additional recommendations are made. Should he stay, we will continue to follow make recommendations where appropriate. Time with Patient: Greater than 30
== END 2021-06-19 14:41 | disposition home or self-care (01) ==
LOC: EC 12:27 → 4SSUR 16:43 → INTOOBSV 16:43 → UNDODISIN 06-19 14:41
PROVIDERS: ADMIT Internal Medicine; ATTEND Internal Medicine
DX: U07.1 COVID-19 (principal); E87.1 Hypo-osmolality and hyponatremia; T50.2X5A Adverse effect of carbonic-anhydrase inhibitors, benzothiadiazides and other diuretics, initial encounter; I10 Essential (primary) hypertension; E11.36 Type 2 diabetes mellitus with diabetic cataract; G47.30 Sleep apnea, unspecified; E78.5 Hyperlipidemia, unspecified; K21.9 Gastro-esophageal reflux disease without esophagitis; E87.6 Hypokalemia; E66.01 Morbid (severe) obesity due to excess calories; Z68.42 Body mass index [BMI] 45.0-49.9, adult; M19.90 Unspecified osteoarthritis, unspecified site; Z98.41 Cataract extraction status, right eye; Z96.651 Presence of right artificial knee joint; Z87.891 Personal history of nicotine dependence; Z79.899 Other long term (current) drug therapy
CPT/HCPCS: 96372; 99284; 36415; 94640 ×4; 93005; 83880; 80048 ×2; 83605; 85025 ×2; 81003; 87635; 71046; G0378 ×2; J1100 ×2; J1650; 99285

== ENCOUNTER → 2021-07-25 | Day surgery (SDC) | payer MEDICARE, OTHER ==
[2021-07-22 11:50] VITALS: BMI 44.7
[~2021-07-25] MED LIST changes: -ACETAMINOPHEN TAB 500 MG TAB PO ONE; +ALPRAZolam 0.25 MG TAB PO PRN; +ALPRAZolam 0.5 MG TAB PO PRN; +ASPIRIN 325 MG TAB PO ONE; +ASPIRIN 81 MG PO SCH; +ATORVASTATIN 20 MG TAB PO SCH; +ATORVASTATIN 80 MG TAB PO ONE; +CHLORTHALIDONE 25 MG TAB PO SCH; +HEPARIN SODIUM 1,000 UN/ML (10ML VL) IV ONE; +HEPARIN SODIUM 1,000 UN/ML (10ML VL) ONE; +IOPAMIDOL-370 125ML BTL INJ ONE; +LIDOCAINE 1% INJ 10MG/ML (20 ML MDV) ONE; +LIDOCAINE 1% INJ 10MG/ML (20 ML MDV) SQ ONE; -MELOXICAM 7.5 MG TAB PO ONE; +NITROGLYCERIN SL TABS 0.4 MG TAB SUBLINGUAL PRN; +POTASSIUM CHLORIDE ER 20 MEQ TAB.ER PO SCH; +RX INFO: IV CONTRAST WAS GIVEN 1 EACH MISC MISCELLANE PRN; +SODIUM CHLORIDE 0.9% 1,000 ML IV SCH; +SODIUM CHLORIDE 0.9% 1,000 ML in EMPTY BAG 1 BAG IV ONE; -TRANEXAMIC ACID 1,000 MG in SODIUM CHLORIDE 0.9% 100 ML IVPB ONE; +VERAPAMIL 2.5 MG/ML 2 ML AMP ONE; +VERAPAMIL SYRINGE (5 MG/10 ML) INTRAARTER ONE; +atenoloL 50 MG TAB PO SCH; -ceFAZolin 3 GM in SODIUM CHLORIDE 0.9% 100 ML IVPB ONE; +fentaNYL (PF) 50 MCG/ML 2 ML AMP IV ONE; +fentaNYL (PF) 50 MCG/ML 2 ML AMP ONE
[2021-07-25 10:47] LABS: Glucose,Whole Blood 96 mg/dL (75-99)
[2021-07-25 10:51] VITALS: TEMP 98.6
[2021-07-25 10:57] LABS: Basophils # (A) 0.1 k/uL (0-0.2); Basophils % (A) 1 %; Eosinophils # (A) 0.3 k/uL (0-0.7); Eosinophils % (A) 2 %; HCT 48.4 % (39.0-53.0); HGB 16.9 gm/dL (13.0-17.5); Lymphocytes % (A) 18 %; MCH 33.2 pg (25.0-35.0); MCHC 34.9 g/dL (31.0-37.0); Mean Platelet Volume 7.4; Monocytes # (A) 0.8 k/uL (0-1.0); Monocytes % (A) 7 %; Neutrophils # (A) 7.8 k/uL (1.3-7.7); Neutrophils % (A) 70 %; Platelet Count 345 k/uL (150-450); RBC 5.09 m/uL (4.30-5.90); RDW 12.2 % (11.5-15.5); WBC 11.2 k/uL (3.8-10.6)
[2021-07-25 11:11] LABS: African American GFR (CKD) >90 (>60 ml/min/1.73 sqM); Anion Gap 11 mmol/L; Blood Urea Nitrogen 10 mg/dL (9-20); Calcium 9.6 mg/dL (8.4-10.2); Carbon Dioxide 29 mmol/L (22-30); Chloride 98 mmol/L (98-107); Glucose 105 mg/dL (74-99); Non-African American GFR(CKD) >90 (>60 ml/min/1.73 sqM); Sodium 138 mmol/L (137-145)
--- NOTE | 2021-07-25 14:17 | CC ---
CARDIAC CATHETERIZATION REPORT DATE OF PROCEDURE: 07/25/2021 Mr. Mauricio is a 65-year-old male with known history of hypertension and hyperlipidemia who has been complaining of progressive dyspnea. He underwent myocardial perfusion imaging that revealed evidence of inducible ischemia. In view of that, recommendation was made regarding cardiac catheterization. The procedure as well as its risks and complications were discussed with the patient, who was in full understanding and agreement. PROCEDURE DESCRIPTION: The patient was brought to the [facility] laboratory technician in a fasting, semi-sedated state after receiving fentanyl and Benadryl and achieving a moderate conscious sedated state. Using Xylocaine anesthesia and Seldinger technique, a 6-Croatian sheath was introduced in the right radial artery. Selective right and left coronary angiography was performed using 5-Croatian 3.5 bend right and left Beatrice catheters. Multiple views were taken of the arteries, including hemiaxial views. The right Beatrice catheter was used to cross the aortic valve and the left ventricular end-diastolic pressure was calculated. Following that, catheter and sheath were removed. Hemostasis was obtained with deployment of a TR band. There was no immediate complication. Patient was returned to his room in stable condition. Of note, the patient received 5000 units of intravenous heparin as well as intra-arterial verapamil. FINDINGS: LEFT MAIN: This is a short-sized vessel, bifurcating into left circumflex and left anterior descending artery. Left main coronary artery has no evidence of high-grade stenosis. LEFT ANTERIOR DESCENDING ARTERY: This vessel tapers down in the mid third, gives rise to 2 diagonal branches of moderate caliber. The left anterior descending artery as well as its branches have no evidence of obstructive coronary artery disease. LEFT CIRCUMFLEX: This is a large nondominant vessel giving rise to 2 obtuse marginal branches. The left circumflex as well as its branches have no evidence of obstructive coronary artery disease. RIGHT CORONARY ARTERY: This is a large dominant vessel bifurcating into PDA and posterolateral segment and branches. The right coronary artery reaches toward the inferoapical and the anteroapical wall. The right coronary artery as well as its branches have no evidence of obstructive coronary artery disease. LEFT VENTRICULOGRAM: Left ventriculogram was not performed. HEMODYNAMICS: There was no gradient across the aortic valve. The left ventricular end- diastolic pressure was 25-28 mmHg. CONCLUSION: 1. Normal coronary arteries. 2. Right dominance. 3. Elevated left ventricular end-diastolic pressure. RECOMMENDATIONS: In view of findings and anatomy, I have recommended continued medical therapy with the aggressive coronary risk modifications that have been initiated. Those findings and recommendations were discussed with the patient and his family, and they are in full understanding and agreement. Duration of sedation was 14 minutes. IVY / L[facility]: [id number] /
--- NOTE | 2021-07-25 14:24 | LTR ---
July 25, 2021 To: Dr. Gray Re: Xu Ornelas (53) Dear Dr. Gray, I had the pleasure of performing cardiac catheterization on Mr. Ornelas in [facility] on July 25, and a full copy of the procedure note will be forwarded to you. In brief, he was found to have no evidence of obstructive coronary artery disease. Based on those findings, I have recommended continued medical therapy and, depending on his progress, further recommendation will be made. Thank you again for allowing me to participate in this patient's care. Please feel free to call with any questions. Sincerely, Sissy Gordon M.D. IVY / L[facility]: [id number] /
[2021-07-25 14:32] VITALS: RESP 18
[2021-07-25 15:28] VITALS: BP 117/72; PULSE 84
== END | disposition home or self-care (01) ==
LOC: CATHCVL 10:14
PROVIDERS: ATTEND Internal Medicine Interventional Cardiology
DX: R06.00 Dyspnea, unspecified (principal); I10 Essential (primary) hypertension; E78.5 Hyperlipidemia, unspecified
CPT/HCPCS: 93458; 80048; 85025; 87635; C1894; C1769; J2001; J3010; J1644; Q9967

== ENCOUNTER 2022-10-01 11:00 | Emergency (ER) | payer MEDICARE, OTHER ==
[2022-10-01 11:05] VITALS: RESP 18; TEMP 98
[2022-10-01] MEDS ORDERED: SODIUM CHLORIDE 0.9% 500 ML 500 ML IV STA (11:15)
--- NOTE | 2022-10-01 11:18 | ED ---
General Adult HPI - General Chief complaint: Abdominal Pain Stated complaint: right side abdominal numbness Time Seen by Provider: 10/01/22 11:06 Source: patient, RN notes reviewed Mode of arrival: ambulatory Limitations: no limitations - History of Present Illness Initial comments: Patient is a pleasant 66-year-old male presenting to the emergency Department with right flank discomfort. Onset of symptoms was a few days ago. Symptoms are waxing and waning. Discomfort feels like a numb type sensation. Discomfort is mild at this time. There is times with discomfort is somewhat more severe. Patient had one episode of nausea. No vomiting. Patient has had some constipation. Patient did have a hard bowel movement a couple of days ago followed by a couple other small bowel movements however. No diarrhea. No history of similar symptoms previously. - Related Data Home Medications Medication Instructions Recorded Confirmed Atenolol/Chlorthalidone 1 tab PO BID 05/24/14 10/01/22 [Atenolol-Chlorthalidone 50-25] Atorvastatin Calcium [Lipitor] 20 mg PO HS 04/24/17 10/01/22 Latanoprost/Pf [Latanoprost 0.005% 1 drop LEFT EYE HS 02/23/19 10/01/22 Eye Drop] Potassium Chloride ER [K-Dur 10] 20 meq PO BID 05/31/21 10/01/22 Cholecalciferol [Vitamin D3 (25 50 mcg PO DAILY 10/01/22 10/01/22 Mcg = 1000 Iu)] Multivit-Min/FA/Lycopen/Lutein 2 tab PO DAILY 10/01/22 10/01/22 [Centrum Silver Men Tablet] Allergies Allergy/AdvReac Type Severity Reaction Status Date / Time No Known Allergies Allergy Verified 10/01/22 12:22 Review of Systems ROS Statement: Those systems with pertinent positive or pertinent negative responses have been documented in the HPI. ROS Other: All systems not noted in ROS Statement are negative. Constitutional: Denies: fever, chills Eyes: Denies: eye pain ENT: Denies: ear pain Respiratory: Denies: cough Cardiovascular: Denies: chest pain Endocrine: Denies: fatigue Gastrointestinal: Reports: as per HPI Genitourinary: Denies: dysuria Musculoskeletal: Denies: back pain Skin: Denies: rash Neurological: Denies: weakness Past Medical History Past Medical History: Diabetes Mellitus, Hyperlipidemia, Hypertension, Osteoarthritis (OA), Sleep Apnea/CPAP/BIPAP Additional Past Medical History / Comment(s): SOB and residual cough from COVID dx 06/18/21, severe heartburn episode May 2021, bilateral eye cataract, "recent stress test showed a blockage", hx hiatal hernia, constipation, hx gout, diet control diabetic History of Any Multi-Drug Resistant Organisms: None Reported Past Surgical History: Breast Surgery, Joint Replacement, Orthopedic Surgery, Tonsillectomy Additional Past Surgical History / Comment(s): Right breast biopsy/lumpectomy, colonoscopy, left elbow fx , left shoulder rotator cuff repair, left eye surgery for glaucoma, right eye cataract removal, total right knee arthroplasty Past Anesthesia/Blood Transfusion Reactions: Previous Problems w/ Anesthesia Additional Past Anesthesia/Blood Transfusion Reaction / Comment(s): "woke up and sat up during knee surgery" Smoking Status: Former smoker - Past Family History Father Family Medical History: No Reported History Additional Family Medical History / Comment(s): none Mother Family Medical History: No Reported History General Exam Limitations: no limitations General appearance: alert, in no apparent distress Head exam: Present: normocephalic Eye exam: Present: normal appearance Neck exam: Present: normal inspection Respiratory exam: Present: normal lung sounds bilaterally Cardiovascular Exam: Present: regular rate, normal rhythm Expanded Peripheral pulses: 2+: Posterior Tibialis (R), Posterior Tibialis (L) GI/Abdominal exam: Present: soft, tenderness (Minimal right lower). Absent: distended, guarding, rebound, rigid, pulsatile mass Extremities exam: Present: normal inspection. Absent: pedal edema, calf tenderness Back exam: Present: normal inspection. Absent: tenderness, CVA tenderness (R), vertebral tenderness Neurological exam: Present: alert Psychiatric exam: Present: normal affect, normal mood Skin exam: Present: normal color Course Vital Signs 10/01/22 10/01/22 11:01 13:00 Temperature 98 F Pulse Rate 92 76 Respiratory 18 18 Rate Blood Pressure 168/98 130/74 O2 Sat by Pulse 96 95 Oximetry Medical Decision Making - Medical Decision Making Patient reevaluated and resting comfortably in bed. Patient updated on results and need for follow-up. - Lab Data Result diagrams: 10/01/22 11:28 10/01/22 11:28 Lab Results 10/01/22 10/01/22 10/01/22 Range/Units 11:28 11:28 11:28 WBC 10.3 (3.8-10.6) k/uL RBC 5.30 (4.30-5.90) m/uL Hgb 17.3 (13.0-17.5) gm/dL Hct 50.2 (39.0-53.0) % MCV 94.7 (80.0-100.0) fL MCH 32.6 (25.0-35.0) pg MCHC 34.5 (31.0-37.0) g/dL RDW 12.5 (11.5-15.5) % Plt Count 225 (150-450) k/uL MPV 8.6 Neutrophils % 65 % Lymphocytes % 19 % Monocytes % 8 % Eosinophils % 4 % Basophils % 1 % Neutrophils # 6.7 (1.3-7.7) k/uL Lymphocytes # 2.0 (1.0-4.8) k/uL Monocytes # 0.8 (0-1.0) k/uL Eosinophils # 0.4 (0-0.7) k/uL Basophils # 0.1 (0-0.2) k/uL PT 10.7 (9.0-12.0) sec INR 1.0 (<1.2) APTT 23.6 (22.0-30.0) sec Sodium 137 (137-145) mmol/L Potassium 3.8 (3.5-5.1) mmol/L Chloride 99 (98-107) mmol/L Carbon Dioxide 31 H (22-30) mmol/L Anion Gap 7 mmol/L BUN 19 (9-20) mg/dL Creatinine 0.97 (0.66-1.25) mg/dL Est GFR (CKD-EPI)AfAm >90 (>60 ml/min/1.73 sqM) Est GFR (CKD-EPI)NonAf 81 (>60 ml/min/1.73 sqM) Glucose 108 H (74-99) mg/dL Calcium 8.5 (8.4-10.2) mg/dL Total Bilirubin 1.2 (0.2-1.3) mg/dL AST 31 (17-59) U/L ALT 24 (4-49) U/L Alkaline Phosphatase 130 H (38-126) U/L Total Protein 6.9 (6.3-8.2) g/dL Albumin 4.0 (3.5-5.0) g/dL Amylase 48 (30-110) U/L Lipase 45 (23-300) U/L Urine Color Urine Appearance (Clear) Urine pH (5.0-8.0) Ur Specific [place] (1.001-1.035) Urine Protein (Negative) Urine Glucose (UA) (Negative) Urine Ketones (Negative) Urine Blood (Negative) Urine Nitrite (Negative) Urine Bilirubin (Negative) Urine Urobilinogen (<2.0) mg/dL Ur Leukocyte Esterase (Negative) 10/01/22 Range/Units 13:34 WBC (3.8-10.6) k/uL RBC (4.30-5.90) m/uL Hgb (13.0-17.5) gm/dL Hct (39.0-53.0) % MCV (80.0-100.0) fL MCH (25.0-35.0) pg MCHC (31.0-37.0) g/dL RDW (11.5-15.5) % Plt Count (150-450) k/uL MPV Neutrophils % % Lymphocytes % % Monocytes % % Eosinophils % % Basophils % % Neutrophils # (1.3-7.7) k/uL Lymphocytes # (1.0-4.8) k/uL Monocytes # (0-1.0) k/uL Eosinophils # (0-0.7) k/uL Basophils # (0-0.2) k/uL PT (9.0-12.0) sec INR (<1.2) APTT (22.0-30.0) sec Sodium (137-145) mmol/L Potassium (3.5-5.1) mmol/L Chloride (98-107) mmol/L Carbon Dioxide (22-30) mmol/L Anion Gap mmol/L BUN (9-20) mg/dL Creatinine (0.66-1.25) mg/dL Est GFR (CKD-EPI)AfAm (>60 ml/min/1.73 sqM) Est GFR (CKD-EPI)NonAf (>60 ml/min/1.73 sqM) Glucose (74-99) mg/dL Calcium (8.4-10.2) mg/dL Total Bilirubin (0.2-1.3) mg/dL AST (17-59) U/L ALT (4-49) U/L Alkaline Phosphatase (38-126) U/L Total Protein (6.3-8.2) g/dL Albumin (3.5-5.0) g/dL Amylase (30-110) U/L Lipase (23-300) U/L Urine Color Light Yellow Urine Appearance Clear (Clear) Urine pH 7.0 (5.0-8.0) Ur Specific [place] 1.011 (1.001-1.035) Urine Protein Negative (Negative) Urine Glucose (UA) Negative (Negative) Urine Ketones Negative (Negative) Urine Blood Negative (Negative) Urine Nitrite Negative (Negative) Urine Bilirubin Negative (Negative) Urine Urobilinogen 2.0 (<2.0) mg/dL Ur Leukocyte Esterase Negative (Negative) - Radiology Data Radiology results: report reviewed (Computed tomography scan shows no evidence of obstruction or calculi. No acute intraluminal process.), image reviewed (KUB interpreted by myself shows nonspecific abdomen.) Disposition Clinical Impression: Abdominal pain Disposition: HOME SELF-CARE Condition: Stable Instructions (If sedation given, give patient instructions): Abdominal Pain (ED), Constipation (ED), High Fiber Diet (ED) Additional Instructions: Please do follow-up to primary care physician in the next couple days for recheck. Consider [id number] milk of magnesia, or metamucil. Return for increased pain, fever, unable to have bowel movement, worsening symptoms or any other concerns Is patient prescribed a controlled substance at d/c from ED?: No Referrals: Nate Gray MD [Primary Care Provider] - 1-2 days Time of Disposition: 14:08
[2022-10-01 11:45] LABS: Partial Thromboplastin Time 23.6 sec (22.0-30.0); Prothrombin Time 10.7 sec (9.0-12.0)
[2022-10-01 11:48] LABS: Basophils # (A) 0.1 k/uL (0-0.2); Basophils % (A) 1 %; Eosinophils # (A) 0.4 k/uL (0-0.7); Eosinophils % (A) 4 %; HCT 50.2 % (39.0-53.0); HGB 17.3 gm/dL (13.0-17.5); Lymphocytes % (A) 19 %; MCH 32.6 pg (25.0-35.0); MCHC 34.5 g/dL (31.0-37.0); MCV 94.7 fL (80.0-100.0); Mean Platelet Volume 8.6; Monocytes # (A) 0.8 k/uL (0-1.0); Monocytes % (A) 8 %; Neutrophils # (A) 6.7 k/uL (1.3-7.7); Neutrophils % (A) 65 %; Platelet Count 225 k/uL (150-450); RDW 12.5 % (11.5-15.5); WBC 10.3 k/uL (3.8-10.6)
[2022-10-01 12:00] LABS: ALT 24 U/L (4-49); AST 31 U/L (17-59); African American GFR (CKD) >90 (>60 ml/min/1.73 sqM); Alkaline Phosphatase 130 U/L (38-126); Amylase 48 U/L (30-110); Anion Gap 7 mmol/L; Blood Urea Nitrogen 19 mg/dL (9-20); Calcium 8.5 mg/dL (8.4-10.2); Carbon Dioxide 31 mmol/L (22-30); Chloride 99 mmol/L (98-107); Glucose 108 mg/dL (74-99); Lipase 45 U/L (23-300); Non-African American GFR(CKD) 81 (>60 ml/min/1.73 sqM); Potassium 3.8 mmol/L (3.5-5.1); Sodium 137 mmol/L (137-145); Total Bilirubin 1.2 mg/dL (0.2-1.3); Total Protein 6.9 g/dL (6.3-8.2)
--- NOTE | 2022-10-01 12:08 | XR ---
EXAMINATION TYPE: XR KUB DATE OF EXAM: 10/01/2022 COMPARISON: NONE HISTORY: Pain TECHNIQUE: One view abdominal series FINDINGS: The osseous structures are intact. The bowel gas pattern is nonspecific. Hypertrophic degenerative c hanges of the spine. Arthropathy of the hips. IMPRESSION: 1. Nonspecific abdomen.
[2022-10-01 13:11] VITALS: BP 130/74; PULSE 76
--- NOTE | 2022-10-01 13:21 | CT ---
EXAMINATION TYPE: CT abdomen pelvis w con CT DLP: 3800 mGycm, Automated exposure control for dose reduction was used. DATE OF EXAM: 10/01/2022 12:57 PM COMPARISON: none CLINICAL INDICATION:Male, 66 years old with history of abdominal pain; Right sided abdominal pain/num bness TECHNIQUE: Axial CT of the abdomen and pelvis. Sagittal and coronal reformats were created on a [employer] workstation. Contrast used:100 mL of Isovue 300 with IV Contrast, Oral contrast used: without Oral Contrast FINDINGS: LOWER CHEST: Unremarkable ABDOMEN LIVER: Unremarkable GALLBLADDER AND BILE DUCTS: Unremarkable. PANCREAS: Unremarkable. SPLEEN: Unremarkable. ADRENAL GLANDS: Unremarkable. KIDNEYS AND URETERS: No evidence of hydronephrosis or renal calculus. The ureters are unremarkable. PELVIS BLADDER: Unremarkable REPRODUCTIVE: Unremarkable. ABDOMEN & PELVIS STOMACH AND BOWEL: No evidence of bowel obstruction. Appendix is normal. Scattered clonic diverticula . PERITONEUM: No evidence of pneumoperitoneum or free fluid. VASCULATURE: No evidence of aortic aneurysm. Mild atherosclerosis of the arterial vasculature. MUSCULOSKELETAL: No acute osseous abnormalities, mild multilevel disc degeneration changes throughout the spine. LYMPH NODES: No gross evidence for lymphadenopathy. SOFT TISSUE/ABDOMINAL WALL: Fat-containing umbilical hernia. IMPRESSION: 1. No evidence of obstructive uropathy or renal calculus. No acute intraluminal process. 2. Fat-containing umbilical hernia. 3. Scattered clonic diverticulosis.
[2022-10-01 13:40] LABS: Appearance,Urine Clear (Clear); Bilirubin,Urine Negative (Negative); Blood,Urine Negative (Negative); Color,Urine Light Yellow; Glucose,Urine (UA) Negative (Negative); Ketones,Urine Negative (Negative); Leukocyte Esterase,Urine Negative (Negative); Nitrite,Urine Negative (Negative); Protein,Urine Negative (Negative); Specific Gravity,Urine 1.011 (1.001-1.035)
== END 2022-10-01 14:25 | disposition home or self-care (01) ==
LOC: EC 11:00
DX: R10.9 Unspecified abdominal pain (principal); E11.9 Type 2 diabetes mellitus without complications; I10 Essential (primary) hypertension; G47.30 Sleep apnea, unspecified; E78.5 Hyperlipidemia, unspecified; Z87.891 Personal history of nicotine dependence; Z79.810 Long term (current) use of selective estrogen receptor modulators (SERMs)
CPT/HCPCS: 99284 ×2; 96360 ×2; 96361 ×3; 36415; 80053; 82150; 83690; 85025; 85610; 85730; 81003; 74018; 74177; Q9967

== ENCOUNTER → 2023-06-16 | Outpatient (CLI) | payer MEDICARE ==
--- NOTE | 2023-06-16 09:23 | CT ---
EXAMINATION TYPE: CT sinus wo con CT DLP: 648 mGycm, Automated exposure control for dose reduction was used. DATE OF EXAM: 06/16/2023 8:05 AM COMPARISON: 04/24/2017. CLINICAL INDICATION:Male, 67 years old with history of J32.0 CHRONIC MAXILLARY SINUSITIS; , Chronic c ough and sinusitis TECHNIQUE: Multiple thin axial images were obtained through the paranasal sinuses without the use of IV contrast. Additional coronal and sagittal reformatted images were submitted for evaluation. Contrast used: none Oral contrast used: none FINDINGS: Frontal sinuses: Mild mucosal thickening. Frontal Recess: Clear Maxillary Sinuses: Mild mucosal thickening. Maxillary Infundibula([facility]): The right ostiomeatal unit is opacified with secretions/mucosal thickenin g in the left is patent. Ethmoid sinuses: Normally developed and aerated. Ethmoidal notch: Unprotected bilateral anterior ethm oidal arteries. Sphenoid sinuses: Normally developed and aerated. There is sellar sphenoid sinus pneumatization witho ut evidence of dehiscence. No dehiscence of carotid canal. No evidence of optic nerve dehiscence wit hin the sphenoid sinus. Onodi cells identified with no dehiscence of the optic nerves. Sphenoethmoida l recesses: Mild mucosal thickening with narrowing.. Nasal septum: Within normal limits. Nasal Turbinates: Within normal limits. Mastoid air cells & middle ears: The air cells are clear. The middle ears are grossly unremarkable. Modified Soft tissues & Brain: Partially seen without gross abnormality. Globes are intact. Other: Cribriform plate demonstrates symmetric Keros classification type 2 cribriform plate. No evidence of bony dehiscence of skull base. Lamina papyracea is intact without evidence of remote orbital fracture or orbital prolapse into the e thmoid sinus. IMPRESSION: 1. Mild paranasal sinus disease 2. Mild narrowing of the left ostiomeatal unit and bilateral sphenoethmoidal and frontonasal sinuses the right breast middle unit is opacified due to secretions/mucosal thickening.,
== END | disposition home or self-care (01) ==
LOC: RADCTMAIN 07:47
PROVIDERS: ATTEND Otolaryngology
DX: J32.0 Chronic maxillary sinusitis (principal); J32.8 Other chronic sinusitis; J34.89 Other specified disorders of nose and nasal sinuses
CPT/HCPCS: 70486

== ENCOUNTER 2024-07-26 07:39 | Day surgery (SDC) | payer MEDICARE ==
[2024-07-26] MEDS: LACTATED RINGERS 1,000 ML IV SCH (08:25)
[2024-07-26] MEDS: LIDOCAINE 1% (10MG/ML) FOR IV START INTRADERMA ONE (08:25)
[2024-07-26] MEDS: IV FLUID CONTINUATION 1,000 ML IV ONE (08:25)
[2024-07-26 08:34] VITALS: TEMP 97.5
[2024-07-26 08:39] LABS: Glucose,Whole Blood 103 mg/dL (70-110)
[2024-07-26] MEDS ORDERED: PROPOFOL 10 MG/ML 20 ML VIAL IV ONE (08:47)
--- NOTE | 2024-07-26 09:08 | P.PCN ---
Date of Procedure: 07/26/24 Procedure(s) Performed: BRIEF HISTORY: Patient is a 68-year-old pleasant white male scheduled for an elective colonoscopy as a part of evaluation for history of colon polyps. Last colonoscopy was 5 years ago. PROCEDURE PERFORMED: Colonoscopy with biopsy. PREOPERATIVE DIAGNOSIS: History of colon polyps. IV sedation per Anesthesia. PROCEDURE: After informed consent was obtained, the patient, was brought into the endoscopy unit. IV sedation was administered by Anesthesia under continuous monitoring. Digital rectal examination was normal. Initially the Olympus CF-160 flexible video colonoscope was then inserted in the rectum, gradually advanced into the cecum without any difficulty. Careful examination was performed as the scope was gradually being withdrawn. Ileocecal valve and the appendiceal orifice were visualized and appeared normal. Prep was excellent. Mucosa of the cecum, ascending colon, transverse colon, descending colon, sigmoid colon, and rectum appeared normal. In the distal rectum there were 2 polyps measuring 3 mm in size removed by cold biopsy. Scattered left-sided diverticulosis. retroflexion was performed in the rectum and no lesions were seen. The patient tolerated the procedure well. IMPRESSION: 3 mm x 2 rectal polyp status post cold biopsy Scattered left-sided diverticulosis RECOMMENDATIONS: Findings of this examination were discussed with the patient as well as his family. He was advised to follow the biopsy results and have repeat colonoscopy in 5 years.
[2024-07-26 09:49] VITALS: BP 136/85; PULSE 78; RESP 20
== END 2024-07-26 11:30 | disposition home or self-care (01) ==
LOC: ORWHC2ENDO 07:39
PROVIDERS: ATTEND Internal Medicine Gastroenterology
DX: Z12.11 Encounter for screening for malignant neoplasm of colon (principal); K62.1 Rectal polyp; K57.30 Diverticulosis of large intestine without perforation or abscess without bleeding; Z86.010 Personal history of colon polyps; Z79.899 Other long term (current) drug therapy; M19.90 Unspecified osteoarthritis, unspecified site; G47.33 Obstructive sleep apnea (adult) (pediatric); K21.9 Gastro-esophageal reflux disease without esophagitis
CPT/HCPCS: 45380; 88305